=== PATIENT | female | born 1980 | race Caucasian/White ===

== ENCOUNTER 2016-12-17 23:57 | Emergency (ER) | payer MEDICAID ==
--- NOTE | 2016-12-18 00:15 | EDPHY ---
H & P Stated Complaint: Pressure behind eyes for several hours-sees [facility] for anemia. HPI/ROS: HPI CHIEF COMPLAINT: Pressure behind both eyes. Headache. HISTORY OF PRESENT ILLNESS: This patient very pleasant 36-year-old female she does have significant past medical history for chronic fatigue syndrome, migraine headaches and anemia currently being treated for anemia at this time. She presents to the emergency room with pressure behind both of her eyes. She describes this as similar previously before. She states she has had 2-3 other episodes of this before. She was ruled out for glaucoma. Also had a negative CT scan back in January of 2016. She states earlier today around 2 o'clock she developed pressure behind both of her eyes. No visual disturbance. No double vision. No thunderclap headache. No neck pain, no fever, no neck stiffness, no vomiting. No chest pain or shortness of breath. She describes the headache as pressure behind both of her eyes. Without visual disturbance. Past Medical History: Migraine headaches, anemia, chronic fatigue syndrome Past Surgical History: No recent surgical history Social History: Denies daily use of drugs alcohol tobacco products for Family History: Noncontributory ROS REVIEW OF SYSTEMS: A comprehensive 10 point review of systems is otherwise negative aside from elements mentioned in the history of present illness. Exam Constitutional appears well nontoxic, triage nursing summary reviewed, vital signs reviewed, awake/alert. Eyes normal conjunctivae and sclera, EOMI, PERRLA. Globes are soft. Will check pressures. HENT normal inspection, atraumatic, moist mucus membranes, no epistaxis, neck supple/ no meningismus, no raccoon eyes. Respiratory clear to auscultation bilaterally, normal breath sounds, no respiratory distress, no wheezing. Cardiovascular rate normal, regular rhythm, no murmur, no edema, distal pulses normal. Gastrointestinal soft, non-tender, no rebound, no guarding, normal bowel sounds, no distension, no pulsatile mass. Genitourinary no CVA tenderness. Musculoskeletal no midline vertebral tenderness, full range of motion, no calf swelling, no tenderness of extremities, no meningismus, good pulses, neurovascularly intact. Skin pink, warm, & dry, no rash, skin atraumatic. Neurologic awake, alert and oriented x 3, AAOx3, moves all 4 extremities equally, motor intact, sensory intact, CN II-XII intact, normal cerebellar, normal vision, normal speech. Psychiatric normal mood/affect. Heme/Lymph/Immune no lymphadenopathy. Differential Diagnosis: Includes but is not limited to in a particular order, tension headache, cluster headache, migraine headache, Medical Decision Making: Plan for this patient IV establishment, IV fluid bolus , migraine cocktail. I do not feel that we need to reimage her head as she has a normal neurological exam and had a negative CT scan in 2016. Will check pressures in both eyes. Re-evaluation: 1237AM: Pressures were taken with Oscar-Pen. Right eye shows pressure 8,10, 8 left eye shows pressure 11,10,9 eye exam visualization of the posterior eye without dilatation I do not appreciate anything significant. No evidence of vitreous hemorrhage. Normal disc without dilatation. CT scan of the head without IV contrast. The results of the study are negative for acute intracranial abnormality. The study was read by Dr. Rojas. I viewed the images myself on the PACS system. 0200AM: I did re-evaluate this patient at this time she is resting comfortably. She did receive a migraine cocktail. Her CT scan of her head was unremarkable. Again her eye exam is unremarkable with no increasing pressures in soft globes. Believe the pressure behind her eyes is consistent with a migraine headache. It was relieved by migraine cocktail here in the emergency room. Neurological exam is unremarkable. She feels comfortable going home. I have given her Neurology referral. She does understand return emergency room if develops worsening headache, fever, vomiting. Visual disturbance. Source: Patient - Personal History LMP (Females 10-55): 1-7 Days Ago Current Tetanus/Diphtheria Vaccine: Unsure Current Tetanus Diphtheria and Acellular Pertussis (TDAP): Unsure - Medical/Surgical History Hx Asthma: No Hx Chronic Respiratory Disease: No Hx Diabetes: No Hx Cardiac Disease: No Hx Renal Disease: No Hx Cirrhosis: No Hx Alcoholism: No Hx HIV/AIDS: No Hx Splenectomy or Spleen Trauma: No Other PMH: chronic fatigue, anemia. - Social History Smoking Status: Never smoked Constitutional: Initial Vital Signs Temperature (C) 36.6 C 12/17/16 23:59 Heart Rate 68 12/17/16 23:59 Blood Pressure 113/79 12/17/16 23:59 O2 Sat (%) 99 12/17/16 23:59 O2 Delivery Mode Room Air Allergies/Adverse Reactions: amoxicillin Allergy (Intermediate, Verified 12/18/16 00:03) Rash tetracycline Allergy (Intermediate, Verified 12/18/16 00:03) Other-Enter Comments Home Medications: Medication Instructions Recorded LORazepam [Ativan] 1 mg PO Q8 PRN #6 tablet 02/04/16 Ondansetron Odt [Zofran Odt 4 mg 8 mg PO TID PRN #10 tab 02/04/16 (*)] oxyCODONE HCL/ACETAMINOPHEN 2 each PO QID #20 tablet 02/04/16 [Percocet 5-325 mg Tablet] predniSONE [Prednisone] 30 mg PO BID #30 tablet 02/04/16 Medical Decision Making - Data Points Medications Given: Discontinued Medications Dexamethasone (Decadron Injection) 10 mg IVP EDNOW ONE Stop: 12/18/16 00:24 Last Admin: 12/18/16 00:42 Dose: 10 mg Diphenhydramine HCl (Benadryl Injection) 50 mg IVP EDNOW ONE Stop: 12/18/16 00:24 Last Admin: 12/18/16 00:40 Dose: 50 mg Sodium Chloride (Ns) 1,000 mls @ 0 mls/hr IV ONCE ONE; Wide Open PRN Reason: Protocol Stop: 12/18/16 00:24 Last Admin: 12/18/16 00:38 Dose: 1,000 mls Ketorolac Tromethamine (Toradol) 30 mg IVP EDNOW ONE Stop: 12/18/16 00:24 Last Admin: 12/18/16 00:40 Dose: 30 mg Metoclopramide HCl (Reglan Injection) 10 mg IVP EDNOW ONE Stop: 12/18/16 00:24 Last Admin: 12/18/16 00:42 Dose: 10 mg Proparacaine HCl (Alcaine 0.5%) 1 drops OP EDNOW ONE Stop: 12/18/16 00:23 Last Admin: 12/18/16 00:44 Dose: Not Given Departure - Departure Disposition: Home, Routine, Self-Care Clinical Impression: Migraine headache Qualifiers: Migraine type: other Status migrainosus presence: without status migrainosus Intractability: not intractable Qualified Code(s): G43.809 - Other migraine, not intractable, without status migrainosus Condition: Good Instructions: Migraine Headache (ED) Referrals: China Moya PA [Primary Care Provider] - As per Instructions Don Burroughs DO [Medical Doctor] - As per Instructions
[2016-12-18] MEDS ORDERED: PROPARACAINE 0.5% 15 ML OPHT DROP OP ONE (00:22)
[2016-12-18] MEDS ORDERED: NS 1,000 ML IV ONE (00:23)
[2016-12-18] MEDS ORDERED: METOCLOPRAMIDE 10 MG/2 ML VIAL IVP ONE (00:23)
[2016-12-18] MEDS ORDERED: DEXAMETHASONE 10 MG/ML VIAL IVP ONE (00:23)
[2016-12-18] MEDS ORDERED: KETOROLAC 30 MG/1 ML SDV IVP ONE (00:23)
[2016-12-18 01:05] VITALS: TEMP 98.2
[2016-12-18 02:12] VITALS: BP 110/75; PULSE 62; RESP 18; O2SAT 100
== END 2016-12-18 02:12 | disposition home or self-care (01) ==
DX: G43.809 Other migraine, not intractable, without status migrainosus (principal); E86.9 Volume depletion, unspecified
CPT/HCPCS: 96374; J1100; J1200; J1885; J2765

== ENCOUNTER 2017-01-01 21:38 | Emergency (ER) | payer MEDICAID ==
--- NOTE | 2017-01-01 21:41 | EDPHY ---
H & P HPI/ROS: HPI CHIEF COMPLAINT: Presyncope, lightheadedness HISTORY OF PRESENT ILLNESS: This patient very pleasant 36-year-old female she does have significant past medical history for chronic fatigue syndrome, B12 deficiency, and anemia she presents emergency room by EMS feeling very lightheaded and felt as if she is going to pass out. Symptoms started suddenly while seated. She did not have a syncopal episode. She denies any chest pain or shortness of breath. She does report she felt that she had numbness and tingling all 4 of her extremities, hands arms legs. She is globally feels weak. Otherwise no other symptoms. Denies nausea, vomiting, diarrhea. Denies fever. Denies chest pain. Past Medical History: Chronic fatigue syndrome, anemia, B12 deficiency Past Surgical History: No recent surgery Social History: Denies daily use drugs alcohol tobacco products Family History: Noncontributory ROS REVIEW OF SYSTEMS: A comprehensive 10 point review of systems is otherwise negative aside from elements mentioned in the history of present illness. Exam Constitutional appears well nontoxic triage nursing summary reviewed, vital signs reviewed, awake/alert. Eyes normal conjunctivae and sclera, EOMI, PERRLA. HENT normal inspection, atraumatic, moist mucus membranes, no epistaxis, neck supple/ no meningismus, no raccoon eyes. Respiratory clear to auscultation bilaterally, normal breath sounds, no respiratory distress, no wheezing. Cardiovascular rate normal, regular rhythm, no murmur, no edema, distal pulses normal. Gastrointestinal soft, non-tender, no rebound, no guarding, normal bowel sounds, no distension, no pulsatile mass. Genitourinary no CVA tenderness. Musculoskeletal no midline vertebral tenderness, full range of motion, no calf swelling, no tenderness of extremities, no meningismus, good pulses, neurovascularly intact. Skin pink, warm, & dry, no rash, skin atraumatic. Neurologic awake, alert and oriented x 3, AAOx3, moves all 4 extremities equally, motor intact, sensory intact, CN II-XII intact, normal cerebellar, normal vision, normal speech. Psychiatric normal mood/affect. Heme/Lymph/Immune no lymphadenopathy. Differential Diagnosis: Includes but is not limited to in a particular order cardiac arrhythmia, electrolyte disturbance, thyroid dysfunction, urinary tract infection, , PE Medical Decision Making: Left this patient IV establishment full bait maker, IV fluid bolus, check electrolytes, check troponin, check EKG. Check urinalysis test. Re-evaluation: EKG interpretation by me on record in [employer] system. Impression time of EKG 2155, this is sinus rhythm rate of 71, no acute ischemic changes. No signs of cardiac arrhythmia. Unremarkable EKG. Chest x-ray reviewed. Negative for acute cardiopulmonary disease. EKG nonischemic and unremarkable. Blood work is reassuring. Normal D-dimer normal troponin. Normal electrolytes. 2329: Re-evaluation this time patient feeling better. Ambulatory to the bathroom any difficulty. No chest pain no shortness of breath no dizziness no lightheadedness at this time. Patient's workup in the emergency room consisted of blood work, x-ray, EKG IV fluid bolus and cardiac monitoring. It has been all unremarkable. I went over this with her and parents at bedside. I do recommend she follows up with Cardiology on outpatient basis for lightheadedness. She return emergency room if she develops syncope, chest pain or any other questions or concerns she understands this and is comfortable this plan. Source: Patient, EMS - Medical/Surgical History Hx Asthma: No Hx Chronic Respiratory Disease: No Hx Diabetes: No Hx Cardiac Disease: No Hx Renal Disease: No Hx Cirrhosis: No Hx Alcoholism: No Hx HIV/AIDS: No Hx Splenectomy or Spleen Trauma: No Other PMH: chronic fatigue, anemia. - Social History Smoking Status: Never smoked Constitutional: Initial Vital Signs Temperature (C) 36.8 C 01/01/17 21:49 Heart Rate 83 01/01/17 21:49 Respiratory Rate 16 01/01/17 21:49 Blood Pressure 139/86 H 01/01/17 21:49 O2 Sat (%) 100 01/01/17 21:49 O2 Delivery Mode Room Air O2 (L/minute) 2 Allergies/Adverse Reactions: amoxicillin Allergy (Intermediate, Verified 01/01/17 21:47) Rash tetracycline Allergy (Intermediate, Verified 01/01/17 21:47) Other-Enter Comments avocado Allergy (Verified 01/01/17 21:47) Milk Containing Products [dairy] Allergy (Verified 01/01/17 21:47) animals Allergy (Uncoded 01/01/17 21:47) Home Medications: Medication Instructions Recorded B12/Levomefolate Calcium/B-6 01/01/17 Medical Decision Making - Diagnostics Imaging Results: Imaging Impressions Chest X-Ray 01/01/17 21:45 IMPRESSION: Normal chest x-ray. - Data Points Laboratory Results: Laboratory Results 01/01/17 21:45 01/01/17 21:45 01/01/17 01/01/17 01/01/17 23:00 21:45 21:45 WBC RBC Hgb Hct MCV MCH MCHC RDW Plt Count MPV Neut % (Auto) Lymph % (Auto) [place] % (Auto) Eos % (Auto) Baso % (Auto) Nucleat RBC Rel Count Absolute Neuts (auto) Absolute Lymphs (auto) Absolute Monos (auto) Absolute Eos (auto) Absolute Basos (auto) Absolute Nucleated RBC Immature Gran % Immature Gran # PT INR APTT D-Dimer Sodium 137 mEq/L mEq/L (134-144) Potassium 3.8 mEq/L mEq/L (3.5-5.2) Chloride 103 mEq/L mEq/L (97-110) Carbon Dioxide 23 mEq/l mEq/l (22-31) Anion Gap 11 mEq/L mEq/L (8-16) BUN 5 mg/dL L mg/dL (7-23) Creatinine 0.8 mg/dL mg/dL (0.6-1.0) Estimated GFR > 60 Glucose 79 mg/dL mg/dL (70-100) Calcium 9.7 mg/dL mg/dL (8.5-10.4) Magnesium 2.1 mg/dL mg/dL (1.6-2.3) Total Bilirubin 0.6 mg/dL mg/dL (0.1-1.4) Conjugated Bilirubin 0.3 mg/dL mg/dL (0.0-0.5) Unconjugated Bilirubin 0.3 mg/dL mg/dL (0.0-1.1) AST 21 IU/L IU/L (14-46) ALT 27 IU/L IU/L (9-52) Alkaline Phosphatase 41 IU/L IU/L (38-126) Creatine Kinase 54 IU/L IU/L (0-156) CK-MB (CK-2) Fraction 0.27 ng/mL ng/mL (0.00-3.19) Troponin I < 0.012 ng/mL ng/mL (0.000-0.034) NT-Pro-B Natriuret Pep 73 pg/mL pg/mL (0-125) Total Protein 7.3 g/dL g/dL (6.3-8.2) Albumin 4.2 g/dL g/dL (3.5-5.0) Lipase 128 IU/L IU/L (23-300) TSH 1.960 uIU/mL uIU/mL (0.465-4.680) Beta HCG, Qual NEGATIVE Urine Color Pending Urine Appearance Pending Urine pH Pending Ur Specific [place] Pending Urine Protein Pending Urine Ketones Pending Urine Blood Pending Urine Nitrate Pending Urine Bilirubin Pending Urine Urobilinogen Pending Ur Leukocyte Esterase Pending Urine RBC Pending Urine WBC Pending Ur Epithelial Cells Pending Urine Glucose Pending 01/01/17 01/01/17 21:45 21:45 WBC 7.08 10^3/uL 10^3/uL (3.80-9.50) RBC 4.37 10^6/uL 10^6/uL (4.18-5.33) Hgb 12.9 g/dL g/dL (12.6-16.3) Hct 38.3 % % (38.0-47.0) MCV 87.6 fL fL (81.5-99.8) MCH 29.5 pg pg (27.9-34.1) MCHC 33.7 g/dL g/dL (32.4-36.7) RDW 13.9 % % (11.5-15.2) Plt Count 271 10^3/uL 10^3/uL (150-400) MPV 11.9 fL H fL (8.7-11.7) Neut % (Auto) 64.1 % % (39.3-74.2) Lymph % (Auto) 28.4 % % (15.0-45.0) [place] % (Auto) 5.9 % % (4.5-13.0) Eos % (Auto) 0.3 % L % (0.6-7.6) Baso % (Auto) 1.0 % % (0.3-1.7) Nucleat RBC Rel Count 0.0 % % (0.0-0.2) Absolute Neuts (auto) 4.54 10^3/uL 10^3/uL (1.70-6.50) Absolute Lymphs (auto) 2.01 10^3/uL 10^3/uL (1.00-3.00) Absolute Monos (auto) 0.42 10^3/uL 10^3/uL (0.30-0.80) Absolute Eos (auto) 0.02 10^3/uL L 10^3/uL (0.03-0.40) Absolute Basos (auto) 0.07 10^3/uL 10^3/uL (0.02-0.10) Absolute Nucleated RBC 0.00 10^3/uL 10^3/uL (0-0.01) Immature Gran % 0.3 % % (0.0-1.1) Immature Gran # 0.02 10^3/uL 10^3/uL (0.00-0.10) PT 13.5 SEC SEC (12.0-15.0) INR 1.04 (0.83-1.16) APTT 33.9 SEC SEC (23.0-38.0) D-Dimer < 0.27 ug/mLFEU ug/mLFEU (0.00-0.50) Sodium Potassium Chloride Carbon Dioxide Anion Gap BUN Creatinine Estimated GFR Glucose Calcium Magnesium Total Bilirubin Conjugated Bilirubin Unconjugated Bilirubin AST ALT Alkaline Phosphatase Creatine Kinase CK-MB (CK-2) Fraction Troponin I NT-Pro-B Natriuret Pep Total Protein Albumin Lipase TSH Beta HCG, Qual Urine Color Urine Appearance Urine pH Ur Specific [place] Urine Protein Urine Ketones Urine Blood Urine Nitrate Urine Bilirubin Urine Urobilinogen Ur Leukocyte Esterase Urine RBC Urine WBC Ur Epithelial Cells Urine Glucose Medications Given: Discontinued Medications Sodium Chloride (Ns) 1,000 mls @ 0 mls/hr IV EDNOW ONE; Wide Open PRN Reason: Protocol Stop: 01/01/17 21:46 Last Admin: 01/01/17 21:53 Dose: 1,000 mls Departure - Departure Disposition: Home, Routine, Self-Care Clinical Impression: Lightheaded Condition: Good Instructions: Near Syncope (ED), Lightheadedness (ED) Additional Instructions: 1.Drink lots of fluids stay well-hydrated. 2. Return emergency room if develops worsening symptoms questions or concerns. Referrals: Patient,NotPresent [Unknown] - As per Instructions Mikael Titus MD [Medical Doctor] - As per Instructions
[2017-01-01] MEDS ORDERED: NS 1,000 ML IV ONE (21:45)
[2017-01-01 21:52] VITALS: O2SAT 100
[2017-01-01 21:55] LABS: % IMMATURE GRANULYOCYTES 0.3 % (0.0-1.1); ABSOLUTE IMMATURE GRANULOCYTES 0.02 10^3/uL (0.00-0.10); ADD DIFF? NO; ADD MORPH? NO; ADD SCAN? NO; ATYPICAL LYMPHOCYTE FLAG 0 (0-99); FRAGMENT RBC FLAG 0 (0-99); HEMATOCRIT 38.3 % (38.0-47.0); HEMOGLOBIN 12.9 g/dL (12.6-16.3); LEFT SHIFT FLG 0 (0-99); LIPEMIA HEMOLYSIS FLAG 80 (0-99); MEAN CELL HEMOGLOBIN 29.5 pg (27.9-34.1); MEAN CELL HEMOGLOBIN CONCENTR. 33.7 g/dL (32.4-36.7); MEAN CELL VOLUME 87.6 fL (81.5-99.8); MEAN PLATELET VOLUME 11.9 fL (8.7-11.7); PLATELET CLUMPS FLAG 0 (0-99); PLATELET COUNT 271 10^3/uL (150-400); RED BLOOD CELL COUNT 4.37 10^6/uL (4.18-5.33); RED CELL DISTRIBUTION WIDTH 13.9 % (11.5-15.2)
--- NOTE | 2017-01-01 21:58 | CPEKG ---
Heart Rate: 71 RR Interval: 845 P-R Interval: 120 QRSD Interval: 78 QT Interval: 388 QTC Interval: 422 P [place]: 23 QRS [place]: 55 T Wave [place]: 61 EKG Severity - NORMAL ECG - EKG Impression: SINUS RHYTHM Electronically Signed By: Domo Nicholas 04-Jan-2017 17:06:58
[2017-01-01 22:02] LABS: INR 1.04 (0.83-1.16); PROTIME(PATIENT) 13.5 SEC (12.0-15.0)
[2017-01-01 22:03] LABS: APTT 33.9 SEC (23.0-38.0)
[2017-01-01 22:04] LABS: ALANINE AMINOTRANSFERASE 27 IU/L (9-52); ALBUMIN 4.2 g/dL (3.5-5.0); ALKALINE PHOSPHATASE 41 IU/L (38-126); ANION GAP 11 mEq/L (8-16); ASPARTATE AMINOTRANSFERASE 21 IU/L (14-46); BILIRUBIN,TOTAL 0.6 mg/dL (0.1-1.4); BILIRUBIN-CONJUGATED 0.3 mg/dL (0.0-0.5); BILIRUBIN-UNCONJUGATED 0.3 mg/dL (0.0-1.1); CALCIUM 9.7 mg/dL (8.5-10.4); CARBON DIOXIDE 23 mEq/l (22-31); CHLORIDE 103 mEq/L (97-110); CREATININE 0.8 mg/dL (0.6-1.0); GLOMERULAR FILTRATION RATE > 60; GLUCOSE 79 mg/dL (70-100); MAGNESIUM 2.1 mg/dL (1.6-2.3); POTASSIUM 3.8 mEq/L (3.5-5.2); SODIUM 137 mEq/L (134-144); TOTAL PROTEIN 7.3 g/dL (6.3-8.2)
[2017-01-01 22:17] LABS: CREATINE KINASE-MB FRACTION 0.27 ng/mL (0.00-3.19); TROPONIN I < 0.012 ng/mL (0.000-0.034)
[2017-01-01 23:35] LABS: COLOR PALE YELLOW; LEUKOCYTE ESTERASE,URINE NEGATIVE (NEGATIVE); NITRITE,URINE NEGATIVE (NEGATIVE)
[2017-01-01 23:38] LABS: BACTERIA TRACE /hpf (NONE SEEN); MUCUS TRACE /lpf (NONE-1+)
[2017-01-01 23:59] VITALS: BP 119/82; PULSE 84; RESP 16; TEMP 98.6
== END 2017-01-01 23:59 | disposition home or self-care (01) ==
LOC: EDUNIT#
DX: R42 Dizziness and giddiness (principal); E86.9 Volume depletion, unspecified

== ENCOUNTER 2017-01-05 18:12 | Emergency (ER) | payer MEDICAID ==
[2017-01-05 18:20] VITALS: RESP 16
[2017-01-05] MEDS ORDERED: NS 500 ML IV ONE (18:44)
[2017-01-05] MEDS ORDERED: LORazepam 2 MG/ML INJ IVP ONE (18:45)
--- NOTE | 2017-01-05 18:51 | CPEKG ---
Heart Rate: 76 RR Interval: 789 P-R Interval: 110 QRSD Interval: 82 QT Interval: 380 QTC Interval: 428 P [place]: 0 QRS [place]: 62 T Wave [place]: 50 EKG Severity - NORMAL ECG - EKG Impression: SINUS RHYTHM Electronically Signed By: Karina Mcwilliams 05-Jan-2017 20:26:28
--- NOTE | 2017-01-05 18:52 | EDPHY ---
H & P Time Seen by Provider: 01/05/17 18:30 HPI/ROS: CHIEF COMPLAINT: Left arm pain and tingling HISTORY OF PRESENT ILLNESS: Patient is a 36-year-old female who presents emergency department with left arm pain and tingling. She also is complaining of lightheadedness. Patient has a history of B12 deficiency anemia. She had a B12 shot earlier today. 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 This was approximately 1 hour ago. She initially felt lightheaded. She then developed a discomfort in the left arm. She denies headache. No chest pain. No shortness of breath. She feels as though she may pass out. She had no loss of consciousness. She denies nausea or vomiting. No weakness. REVIEW OF SYSTEMS: My complete review of systems is negative except as mentioned in the HPI. Past Medical/Surgical History: Chronic fatigue syndrome, anemia, B12 deficiency Past surgical history: No surgery recently Social history: The patient denies drugs or alcohol Smoking Status: Never smoked Physical Exam: Vitals noted. 36.7, 126/92, 79, 16, 100% on room air GENERAL: Well-appearing, in no acute distress, alert. HEENT: Eyes normal to inspection, normal pharynx, no signs of dehydration. NECK: No thyromegaly, no lymphadenopathy, supple. RESPIRATORY: Clear to auscultation bilaterally, no rales, rhonchi or wheezing. CVS: Regular rate and rhythm, no rubs, murmurs, or gallops. ABDOMEN: Soft, nontender, nondistended, no organomegaly. BACK: Normal to inspection, no CVA tenderness. SKIN: Normal color, no rash, warm, dry. No pallor. EXTREMITIES: No pedal edema, no calf tenderness, no Homans sign or cords, no joint swelling. NEURO/PSYCH: Alert and oriented x3, slightly anxious appearing, normal affect, normal motor sensory exam. Slight hand tremor. Constitutional: Initial Vital Signs Temperature (C) 36.7 C 01/05/17 18:17 Heart Rate 79 01/05/17 18:17 Respiratory Rate 16 01/05/17 18:17 Blood Pressure 126/92 H 01/05/17 18:17 O2 Sat (%) 100 01/05/17 18:17 O2 Delivery Mode Room Air Allergies/Adverse Reactions: amoxicillin Allergy (Intermediate, Verified 01/05/17 18:17) Rash tetracycline Allergy (Intermediate, Verified 01/05/17 18:17) Other-Enter Comments avocado Allergy (Verified 01/05/17 18:17) Milk Containing Products [dairy] Allergy (Verified 01/05/17 18:17) animals Allergy (Uncoded 01/01/17 21:47) Home Medications: Medication Instructions Recorded B12/Levomefolate Calcium/B-6 01/01/17 Medical Decision Making ED Course/Re-evaluation: In the emergency department I discussed the plan with the patient. I answered all her questions. An IV was placed. Laboratory studies and EKG were ordered. I reviewed the patient's previous record from 01/01/2017. Due the patient's slight tremor she was given Ativan 0.1 mg IV. EKG shows normal sinus rhythm, normal rate, normal axis, normal intervals. There are no ST or T-wave abnormalities. EKG is normal as interpreted by me. I reviewed the patient's laboratory studies. Her CBC and chemistry unremarkable. Troponin was negative. I discussed results with the patient. She is feeling better. She will follow up with Cardiology her primary care physician. She is given warnings prior to leaving. Differential Diagnosis: My differential includes but is not limited to ACS, acute [place], dysrhythmia, electrolyte abnormality, sugar abnormality, dehydration, anemia, UTI, , thyroid dysfunction - Data Points Laboratory Results: Laboratory Results 01/05/17 18:55 01/05/17 18:55 01/05/17 01/05/17 01/05/17 18:55 18:55 18:55 WBC RBC Hgb Hct MCV MCH MCHC RDW Plt Count MPV Neut % (Auto) Lymph % (Auto) [place] % (Auto) Eos % (Auto) Baso % (Auto) Nucleat RBC Rel Count Absolute Neuts (auto) Absolute Lymphs (auto) Absolute Monos (auto) Absolute Eos (auto) Absolute Basos (auto) Absolute Nucleated RBC Immature Gran % Immature Gran # PT 14.1 SEC SEC (12.0-15.0) INR 1.10 (0.83-1.16) APTT 32.2 SEC SEC (23.0-38.0) Sodium 135 mEq/L mEq/L (134-144) Potassium 3.7 mEq/L mEq/L (3.5-5.2) Chloride 103 mEq/L mEq/L (97-110) Carbon Dioxide 19 mEq/l L mEq/l (22-31) Anion Gap 13 mEq/L mEq/L (8-16) BUN 8 mg/dL mg/dL (7-23) Creatinine 0.7 mg/dL mg/dL (0.6-1.0) Estimated GFR > 60 Glucose 86 mg/dL mg/dL (70-100) Calcium 9.4 mg/dL mg/dL (8.5-10.4) Total Bilirubin 1.1 mg/dL mg/dL (0.1-1.4) Conjugated Bilirubin 0.3 mg/dL mg/dL (0.0-0.5) Unconjugated Bilirubin 0.8 mg/dL mg/dL (0.0-1.1) AST 16 IU/L IU/L (14-46) ALT 24 IU/L IU/L (9-52) Alkaline Phosphatase 38 IU/L IU/L (38-126) Troponin I < 0.012 ng/mL ng/mL (0.000-0.034) Total Protein 6.8 g/dL g/dL (6.3-8.2) Albumin 4.1 g/dL g/dL (3.5-5.0) Lipase 96 IU/L IU/L (23-300) Beta HCG, Qual NEGATIVE 01/05/17 18:55 WBC 7.51 10^3/uL 10^3/uL (3.80-9.50) RBC 4.60 10^6/uL 10^6/uL (4.18-5.33) Hgb 13.4 g/dL g/dL (12.6-16.3) Hct 40.7 % % (38.0-47.0) MCV 88.5 fL fL (81.5-99.8) MCH 29.1 pg pg (27.9-34.1) MCHC 32.9 g/dL g/dL (32.4-36.7) RDW 14.1 % % (11.5-15.2) Plt Count 280 10^3/uL 10^3/uL (150-400) MPV 11.3 fL fL (8.7-11.7) Neut % (Auto) 69.0 % % (39.3-74.2) Lymph % (Auto) 22.4 % % (15.0-45.0) [place] % (Auto) 6.4 % % (4.5-13.0) Eos % (Auto) 0.7 % % (0.6-7.6) Baso % (Auto) 1.1 % % (0.3-1.7) Nucleat RBC Rel Count 0.0 % % (0.0-0.2) Absolute Neuts (auto) 5.19 10^3/uL 10^3/uL (1.70-6.50) Absolute Lymphs (auto) 1.68 10^3/uL 10^3/uL (1.00-3.00) Absolute Monos (auto) 0.48 10^3/uL 10^3/uL (0.30-0.80) Absolute Eos (auto) 0.05 10^3/uL 10^3/uL (0.03-0.40) Absolute Basos (auto) 0.08 10^3/uL 10^3/uL (0.02-0.10) Absolute Nucleated RBC 0.00 10^3/uL 10^3/uL (0-0.01) Immature Gran % 0.4 % % (0.0-1.1) Immature Gran # 0.03 10^3/uL 10^3/uL (0.00-0.10) PT INR APTT Sodium Potassium Chloride Carbon Dioxide Anion Gap BUN Creatinine Estimated GFR Glucose Calcium Total Bilirubin Conjugated Bilirubin Unconjugated Bilirubin AST ALT Alkaline Phosphatase Troponin I Total Protein Albumin Lipase Beta HCG, Qual Medications Given: Discontinued Medications Sodium Chloride (Ns) 500 mls @ 1,000 mls/hr IV EDNOW ONE PRN Reason: Protocol Stop: 01/05/17 19:13 Last Admin: 01/05/17 19:03 Dose: 500 mls Lorazepam (Ativan Injection) 0.5 mg IVP EDNOW ONE Stop: 01/05/17 18:46 Last Admin: 01/05/17 19:03 Dose: 0.5 mg Departure - Departure Disposition: Home, Routine, Self-Care Clinical Impression: Near syncope Condition: Good Instructions: Allergies (ED) Additional Instructions: Return with worsen symptoms or any other concerns. Referrals: China Moya PA [Primary Care Provider] - 1-2 days without fail [facility] [Provider Group] - 3-4 days, if not improved
[2017-01-05 19:03] LABS: % IMMATURE GRANULYOCYTES 0.4 % (0.0-1.1); ABSOLUTE IMMATURE GRANULOCYTES 0.03 10^3/uL (0.00-0.10); ADD DIFF? NO; ADD MORPH? NO; ADD SCAN? NO; ATYPICAL LYMPHOCYTE FLAG 20 (0-99); FRAGMENT RBC FLAG 0 (0-99); HEMATOCRIT 40.7 % (38.0-47.0); HEMOGLOBIN 13.4 g/dL (12.6-16.3); LEFT SHIFT FLG 0 (0-99); LIPEMIA HEMOLYSIS FLAG 80 (0-99); MEAN CELL HEMOGLOBIN 29.1 pg (27.9-34.1); MEAN CELL HEMOGLOBIN CONCENTR. 32.9 g/dL (32.4-36.7); MEAN CELL VOLUME 88.5 fL (81.5-99.8); MEAN PLATELET VOLUME 11.3 fL (8.7-11.7); PLATELET CLUMPS FLAG 10 (0-99); PLATELET COUNT 280 10^3/uL (150-400); RED CELL DISTRIBUTION WIDTH 14.1 % (11.5-15.2)
[2017-01-05 19:12] LABS: INR 1.1 (0.83-1.16); PROTIME(PATIENT) 14.1 SEC (12.0-15.0)
[2017-01-05 19:13] LABS: APTT 32.2 SEC (23.0-38.0)
[2017-01-05 19:14] LABS: ALANINE AMINOTRANSFERASE 24 IU/L (9-52); ALBUMIN 4.1 g/dL (3.5-5.0); ALKALINE PHOSPHATASE 38 IU/L (38-126); ANION GAP 13 mEq/L (8-16); ASPARTATE AMINOTRANSFERASE 16 IU/L (14-46); BILIRUBIN,TOTAL 1.1 mg/dL (0.1-1.4); BILIRUBIN-CONJUGATED 0.3 mg/dL (0.0-0.5); BILIRUBIN-UNCONJUGATED 0.8 mg/dL (0.0-1.1); CALCIUM 9.4 mg/dL (8.5-10.4); CARBON DIOXIDE 19 mEq/l (22-31); CHLORIDE 103 mEq/L (97-110); CREATININE 0.7 mg/dL (0.6-1.0); GLOMERULAR FILTRATION RATE > 60; GLUCOSE 86 mg/dL (70-100); POTASSIUM 3.7 mEq/L (3.5-5.2); SODIUM 135 mEq/L (134-144); TOTAL PROTEIN 6.8 g/dL (6.3-8.2)
[2017-01-05 19:39] LABS: TROPONIN I < 0.012 ng/mL (0.000-0.034)
[2017-01-05 20:13] VITALS: O2SAT 96
[2017-01-05 20:22] VITALS: BP 136/80; PULSE 66; TEMP 97.9
== END 2017-01-05 20:21 | disposition home or self-care (01) ==
DX: R55 Syncope and collapse (principal); E86.9 Volume depletion, unspecified
CPT/HCPCS: 96374; J2060

== ENCOUNTER 2017-01-09 00:03 | Emergency (ER) | payer MEDICAID ==
[2017-01-09 00:12] VITALS: PULSE 100; RESP 18; TEMP 98.4; O2SAT 100
[2017-01-09] MEDS ORDERED: KETOROLAC 15 MG/1 ML SDV IVP ONE (01:01)
--- NOTE | 2017-01-09 01:04 | EDPHY ---
H & P Stated Complaint: pt c/o pressure in her head, and eyes, seen x2 in last week for similar Time Seen by Provider: 01/09/17 00:49 HPI/ROS: Chief Complaint: Head pressure HPI: 36-year-old woman presenting complaining of pressure in the front half of her head. Patient states that began several days ago but got worse today. She has actually had his multiple visits to the emergency department last week for various complaints include lightheadedness, head pressure, I pressure in the past. She was actually seen by neurologist last week who ordered an MRI. Patient states that the pressure is about an 8/10. She did have some flashing lights a couple days ago is and mild ringing in her ears. No recent traumas. No nausea or vomiting. No new numbness or weakness. No fevers or chills. No neck pain or stiffness. ROS: 10 point Review of Systems is negative except as noted in the HPI. PMH: Chronic fatigue, anemia Social History: No smoking, rare alcohol, no recreational drug use Family History: non-contributory Physical Exam: Gen: Awake, Alert, No Distress HEENT: Nose: no rhinorrhea Eyes: PERRLA, EOMI Mouth: Moist mucosa Neck: Supple, no JVD Chest: nontender, lungs clear to auscultation Heart: S1, S2 normal, no murmur Abd: Soft, non-tender, no guarding Back: no CVA tenderness, no midline tenderness Ext: no edema, non-tender Skin: no rash Neuro: CN II-XII intact, Sensation grossly intact, Strength 5/5 in bilateral upper and lower extremities - Personal History LMP (Females 10-55): 1-7 Days Ago Current Tetanus Diphtheria and Acellular Pertussis (TDAP): Unsure - Medical/Surgical History Hx Asthma: No Hx Chronic Respiratory Disease: No Hx Diabetes: No Hx Cardiac Disease: No Hx Renal Disease: No Hx Cirrhosis: No Hx Alcoholism: No Hx HIV/AIDS: No Hx Splenectomy or Spleen Trauma: No Other PMH: chronic fatigue, anemia. - Social History Smoking Status: Never smoked Constitutional: Initial Vital Signs Temperature (C) 36.9 C 01/09/17 00:09 Heart Rate 100 01/09/17 00:09 Respiratory Rate 18 01/09/17 00:09 Blood Pressure 114/71 01/09/17 00:09 O2 Sat (%) 100 01/09/17 00:09 O2 Delivery Mode Room Air Allergies/Adverse Reactions: amoxicillin Allergy (Intermediate, Verified 01/05/17 18:17) Rash tetracycline Allergy (Intermediate, Verified 01/05/17 18:17) Other-Enter Comments avocado Allergy (Verified 01/05/17 18:17) Milk Containing Products [dairy] Allergy (Verified 01/05/17 18:17) animals Allergy (Uncoded 01/01/17 21:47) Home Medications: Medication Instructions Recorded B12/Levomefolate Calcium/B-6 01/01/17 Medical Decision Making ED Course/Re-evaluation: Patient is improved. No focal neurologic findings on her examination. She also has an appointment for an MRI. The symptoms suggestive of meningitis or an intracranial bleed. She has presented multiple times this week for similar symptoms with no significant findings. I think it is best to discharge her to have a follow-up this week with her neurologist and her primary care physician. She will return for worsening. - Data Points Laboratory Results: Laboratory Results 01/09/17 00:50 01/09/17 00:50 01/09/17 01/09/17 00:50 00:50 WBC 4.69 10^3/uL 10^3/uL (3.80-9.50) RBC 4.40 10^6/uL 10^6/uL (4.18-5.33) Hgb 12.9 g/dL g/dL (12.6-16.3) Hct 39.4 % % (38.0-47.0) MCV 89.5 fL fL (81.5-99.8) MCH 29.3 pg pg (27.9-34.1) MCHC 32.7 g/dL g/dL (32.4-36.7) RDW 13.8 % % (11.5-15.2) Plt Count 274 10^3/uL 10^3/uL (150-400) MPV 11.1 fL fL (8.7-11.7) Neut % (Auto) 47.1 % % (39.3-74.2) Lymph % (Auto) 42.0 % % (15.0-45.0) [place] % (Auto) 7.5 % % (4.5-13.0) Eos % (Auto) 1.5 % % (0.6-7.6) Baso % (Auto) 1.7 % % (0.3-1.7) Nucleat RBC Rel Count 0.0 % % (0.0-0.2) Absolute Neuts (auto) 2.21 10^3/uL 10^3/uL (1.70-6.50) Absolute Lymphs (auto) 1.97 10^3/uL 10^3/uL (1.00-3.00) Absolute Monos (auto) 0.35 10^3/uL 10^3/uL (0.30-0.80) Absolute Eos (auto) 0.07 10^3/uL 10^3/uL (0.03-0.40) Absolute Basos (auto) 0.08 10^3/uL 10^3/uL (0.02-0.10) Absolute Nucleated RBC 0.00 10^3/uL 10^3/uL (0-0.01) Immature Gran % 0.2 % % (0.0-1.1) Immature Gran # 0.01 10^3/uL 10^3/uL (0.00-0.10) Sodium 140 mEq/L mEq/L (134-144) Potassium 3.7 mEq/L mEq/L (3.5-5.2) Chloride 104 mEq/L mEq/L (97-110) Carbon Dioxide 26 mEq/l mEq/l (22-31) Anion Gap 10 mEq/L mEq/L (8-16) BUN 4 mg/dL L mg/dL (7-23) Creatinine 0.7 mg/dL mg/dL (0.6-1.0) Estimated GFR > 60 Glucose 82 mg/dL mg/dL (70-100) Calcium 9.3 mg/dL mg/dL (8.5-10.4) Medications Given: Discontinued Medications Sodium Chloride (Ns) 1,000 mls @ 0 mls/hr IV ONCE ONE PRN Reason: Wide Open Stop: 01/09/17 01:09 Last Admin: 01/09/17 00:50 Dose: 1,000 mls Ketorolac Tromethamine (Toradol) 15 mg IVP EDNOW ONE Stop: 01/09/17 01:02 Last Admin: 01/09/17 01:11 Dose: 15 mg Departure - Departure Disposition: Home, Routine, Self-Care Clinical Impression: Headache Condition: Good Instructions: General Headache (ED) Additional Instructions: Follow up with primary care physician as scheduled on Monday. Follow up with your neurologist and get the MRI of the brain performed as ordered. Return to the emergency department for worsening headache, numbness, weakness, fevers, chills, or any other concerns. Referrals: China Moya PA [Primary Care Provider] - As per Instructions
[2017-01-09 01:05] LABS: % IMMATURE GRANULYOCYTES 0.2 % (0.0-1.1); ABSOLUTE IMMATURE GRANULOCYTES 0.01 10^3/uL (0.00-0.10); ADD DIFF? NO; ADD MORPH? NO; ADD SCAN? NO; ATYPICAL LYMPHOCYTE FLAG 0 (0-99); FRAGMENT RBC FLAG 0 (0-99); HEMATOCRIT 39.4 % (38.0-47.0); HEMOGLOBIN 12.9 g/dL (12.6-16.3); LEFT SHIFT FLG 0 (0-99); LIPEMIA HEMOLYSIS FLAG 80 (0-99); MEAN CELL HEMOGLOBIN 29.3 pg (27.9-34.1); MEAN CELL HEMOGLOBIN CONCENTR. 32.7 g/dL (32.4-36.7); MEAN CELL VOLUME 89.5 fL (81.5-99.8); MEAN PLATELET VOLUME 11.1 fL (8.7-11.7); PLATELET CLUMPS FLAG 0 (0-99); PLATELET COUNT 274 10^3/uL (150-400); RED CELL DISTRIBUTION WIDTH 13.8 % (11.5-15.2)
[2017-01-09] MEDS ORDERED: NS 1,000 ML IV ONE (01:08)
[2017-01-09 01:22] LABS: ANION GAP 10 mEq/L (8-16); CALCIUM 9.3 mg/dL (8.5-10.4); CARBON DIOXIDE 26 mEq/l (22-31); CHLORIDE 104 mEq/L (97-110); CREATININE 0.7 mg/dL (0.6-1.0); GLOMERULAR FILTRATION RATE > 60; GLUCOSE 82 mg/dL (70-100); POTASSIUM 3.7 mEq/L (3.5-5.2); SODIUM 140 mEq/L (134-144)
[2017-01-09 02:47] VITALS: BP 110/80
== END 2017-01-09 02:46 | disposition home or self-care (01) ==
PROC: 3E0337Z Introduction of Electrolytic and Water Balance Substance into Peripheral Vein, Percutaneous Approach (ICD-10-PCS; principal; 2017-01-09)
DX: R51 Headache (principal)
CPT/HCPCS: 96374; J1885

== ENCOUNTER 2017-01-10 17:29 | Inpatient (IN) | payer MEDICAID ==
--- NOTE | 2017-01-10 17:45 | EDPHY ---
General Narrative: CHIEF COMPLAINT: Multiple complaints HISTORY OF PRESENT ILLNESS: Patient complains of ongoing "head" complaints. These include occasional lightheaded and dizziness, facial tingling and numbness, left arm tingling and numbness, weakness of the left arm, tremor, difficulty with words and thought process. Symptoms wax and wane. They are [id number]. They are unpredictable. The never fully resolved. No chest pain but she does have near syncope with. She has been evaluated several times for this and discuss this with a neurologist yesterday and has an MRI ordered tomorrow night of the brain. She has no fever or chills. She has no neck pain or stiffness. No trauma or injury. She has no formal diagnosis further complaints despite several visits. No other associated complaints or modifying factors REVIEW OF SYSTEMS: Ten systems reviewed and are negative unless otherwise noted in the HPI PAST MEDICAL HISTORY: Extensive. Reviewed PAST SURGICAL HISTORY: Reviewed SOCIAL HISTORY: Nonsmoker. Works [employer] but [facility] in [facility] FAMILY HISTORY: Noncontributory EXAMINATION General Appearance: Alert, no distress Head: normocephalic, atraumatic Eyes: Pupils equal and round, no conjunctival pallor or injection. No nystagmus. No dysconjugate gaze. EOMs intact ENT, Mouth: Mucous membranes moist. Airway widely patent. Neck: Normal inspection, supple, non-tender Respiratory: Lungs are clear to auscultation Cardiovascular: Regular rate and rhythm. No murmur Gastrointestinal: Abdomen is soft and nontender Back: non-tender, no bony abnormalities Neurological: GCS 15. A&O, nonfocal, normal gait. Strength is symmetric in all 4 limbs. No pronator drift. No dysmetria. NIH stroke scale is 0 Skin: Warm and dry, no rash. No petechiae or purpura Extremities: Nontender, no pedal edema Psychiatric: Mood and affect normal DIFFERENTIAL DIAGNOSES: Including but not limited to TA, CVA, seizure, electrolyte disturbance, somatic disorder MDM: 5:40 p.m. Multiple complaints with primary concern of facial tingling, left upper extremity tingling weakness, difficulty with her words. Patient has been seen 3 times for the same complaints over the past 9 days. She has an appointment for an MRI tomorrow. She has no chest pain syncope. Vital signs are stable. EKG is been ordered. Laboratory studies pending. She is in no acute distress. This is not a stroke activation she has no evidence of stroke by examination or history at this time. 6:10 p.m. Discussed the case with Dr. Dougherty. He is in agreement with brain MRI and also suggest cervical spine MRI. This has been ordered and she is currently in MRI. 9:00 p.m. Notified by radiologist Dr. Campbell. MRIs of the brain and cervical spine without contrast have no acute findings. 9:10 p.m. I have informed the patient of the negative findings. I informed her of the negative laboratory studies. The patient is adamant that there is something abnormal and as expressed her concern for TIA. She is requesting admission to the hospital and states that she is too debilitated to go home. We discussed with hospitalist. 9:15 p.m. Case discussed with hospitalist . We discussed multiple possibilities for the next level of care. Dr. Montejo has agreed to admit the patient to the hospital to the service of Dr. Canales. She is admitted in stable condition. Patient is not a tPA candidate as she has no evidence of stroke. She has an NIH Stroke Scale of 0. - Diagnostics Imaging Results: Imaging Impressions Chest X-Ray 01/10/17 17:39 Impression: 1. No acute pulmonary disease. 2. No definite pneumonia. Brain MRI 01/10/17 17:44 Impression: Normal. Report telephoned at 2050 hours. Cervical Spine MRI 01/10/17 18:06 Impression: Normal. Report telephoned to Guillermo Hawk at 2054 hours. - History Smoking Status: Never smoked - Objective Vital Signs: Initial Vital Signs Temperature (C) 97.9 F 01/10/17 17:42 Heart Rate 72 01/10/17 17:42 Respiratory Rate 16 01/10/17 17:42 Blood Pressure 141/97 H 01/10/17 17:42 O2 Sat (%) 100 01/10/17 17:42 O2 Delivery Mode Room Air Allergies/Adverse Reactions: amoxicillin Allergy (Intermediate, Verified 01/05/17 18:17) Rash tetracycline Allergy (Intermediate, Verified 01/05/17 18:17) Other-Enter Comments avocado Allergy (Verified 01/05/17 18:17) Milk Containing Products [dairy] Allergy (Verified 01/05/17 18:17) animals Allergy (Uncoded 01/01/17 21:47) Home Medications: Medication Instructions Recorded Cyanocobalamin [Vitamin B12 1,000 mcg IM Q7D 01/10/17 1000MCG/ML (*)] Herbals/Supplements -Info Only 1 ea PO DAILY 01/10/17 Ibuprofen [Motrin (*)] 400 mg PO Q4-6PRN PRN 01/10/17 Laboratory Results: Laboratory Results 01/10/17 17:45 01/10/17 17:45 01/10/17 01/10/17 01/10/17 17:45 17:45 17:45 WBC RBC Hgb Hct MCV MCH MCHC RDW Plt Count MPV Neut % (Auto) Lymph % (Auto) [place] % (Auto) Eos % (Auto) Baso % (Auto) Nucleat RBC Rel Count Absolute Neuts (auto) Absolute Lymphs (auto) Absolute Monos (auto) Absolute Eos (auto) Absolute Basos (auto) Absolute Nucleated RBC Immature Gran % Immature Gran # PT 13.8 SEC SEC (12.0-15.0) INR 1.07 (0.83-1.16) APTT 33.3 SEC SEC (23.0-38.0) Sodium 139 mEq/L mEq/L (134-144) Potassium 3.6 mEq/L mEq/L (3.5-5.2) Chloride 105 mEq/L mEq/L (97-110) Carbon Dioxide 23 mEq/l mEq/l (22-31) Anion Gap 11 mEq/L mEq/L (8-16) BUN 6 mg/dL L mg/dL (7-23) Creatinine 0.8 mg/dL mg/dL (0.6-1.0) Estimated GFR > 60 Glucose 84 mg/dL mg/dL (70-100) Calcium 9.5 mg/dL mg/dL (8.5-10.4) Troponin I < 0.012 ng/mL ng/mL (0.000-0.034) Beta HCG, Qual NEGATIVE 01/10/17 17:45 WBC 3.52 10^3/uL L 10^3/uL (3.80-9.50) RBC 4.39 10^6/uL 10^6/uL (4.18-5.33) Hgb 13.1 g/dL g/dL (12.6-16.3) Hct 38.8 % % (38.0-47.0) MCV 88.4 fL fL (81.5-99.8) MCH 29.8 pg pg (27.9-34.1) MCHC 33.8 g/dL g/dL (32.4-36.7) RDW 13.8 % % (11.5-15.2) Plt Count 232 10^3/uL 10^3/uL (150-400) MPV 11.7 fL fL (8.7-11.7) Neut % (Auto) 42.7 % % (39.3-74.2) Lymph % (Auto) 44.3 % % (15.0-45.0) [place] % (Auto) 9.9 % % (4.5-13.0) Eos % (Auto) 1.1 % % (0.6-7.6) Baso % (Auto) 2.0 % H % (0.3-1.7) Nucleat RBC Rel Count 0.0 % % (0.0-0.2) Absolute Neuts (auto) 1.50 10^3/uL L 10^3/uL (1.70-6.50) Absolute Lymphs (auto) 1.56 10^3/uL 10^3/uL (1.00-3.00) Absolute Monos (auto) 0.35 10^3/uL 10^3/uL (0.30-0.80) Absolute Eos (auto) 0.04 10^3/uL 10^3/uL (0.03-0.40) Absolute Basos (auto) 0.07 10^3/uL 10^3/uL (0.02-0.10) Absolute Nucleated RBC 0.00 10^3/uL 10^3/uL (0-0.01) Immature Gran % 0.0 % % (0.0-1.1) Immature Gran # 0.00 10^3/uL 10^3/uL (0.00-0.10) PT INR APTT Sodium Potassium Chloride Carbon Dioxide Anion Gap BUN Creatinine Estimated GFR Glucose Calcium Troponin I Beta HCG, Qual Departure - Departure Disposition: [facility] Inpatient Acute Clinical Impression: Paresthesia Condition: Good
--- NOTE | 2017-01-10 17:53 | CPEKG ---
Heart Rate: 69 RR Interval: 870 P-R Interval: 112 QRSD Interval: 80 QT Interval: 380 QTC Interval: 407 P Ferris: 48 QRS Ferris: 64 T Wave Ferris: 62 EKG Severity - NORMAL ECG - EKG Impression: SINUS RHYTHM Electronically Signed By: Jose Dougherty 10-Jan-2017 23:03:41
[2017-01-10 17:56] LABS: ADD DIFF? NO; ADD MORPH? NO; ADD SCAN? NO; ATYPICAL LYMPHOCYTE FLAG 10 (0-99); FRAGMENT RBC FLAG 0 (0-99); HEMATOCRIT 38.8 % (38.0-47.0); HEMOGLOBIN 13.1 g/dL (12.6-16.3); LEFT SHIFT FLG 0 (0-99); LIPEMIA HEMOLYSIS FLAG 90 (0-99); MEAN CELL HEMOGLOBIN 29.8 pg (27.9-34.1); MEAN CELL HEMOGLOBIN CONCENTR. 33.8 g/dL (32.4-36.7); MEAN CELL VOLUME 88.4 fL (81.5-99.8); MEAN PLATELET VOLUME 11.7 fL (8.7-11.7); PLATELET CLUMPS FLAG 0 (0-99); PLATELET COUNT 232 10^3/uL (150-400); RED BLOOD CELL COUNT 4.39 10^6/uL (4.18-5.33); RED CELL DISTRIBUTION WIDTH 13.8 % (11.5-15.2)
[2017-01-10] MEDS ORDERED: GADOBUTROL 10 ML VIAL IVP ONE (18:08)
[2017-01-10 18:16] LABS: CALCIUM 9.5 mg/dL (8.5-10.4); CARBON DIOXIDE 23 mEq/l (22-31); CREATININE 0.8 mg/dL (0.6-1.0); GLOMERULAR FILTRATION RATE > 60; GLUCOSE 84 mg/dL (70-100); POTASSIUM 3.6 mEq/L (3.5-5.2); SODIUM 139 mEq/L (134-144)
[2017-01-10 18:18] LABS: INR 1.07 (0.83-1.16); PROTIME(PATIENT) 13.8 SEC (12.0-15.0)
[2017-01-10 18:19] LABS: APTT 33.3 SEC (23.0-38.0)
[2017-01-10 18:27] LABS: TROPONIN I < 0.012 ng/mL (0.000-0.034)
[2017-01-10 18:38] LABS: ANION GAP 11 mEq/L (8-16); CHLORIDE 105 mEq/L (97-110)
[2017-01-10] MEDS ORDERED: ONDANSETRON DISINTEGRATING 4 MG TAB PO PRN (23:36)
[2017-01-10] MEDS ORDERED: ONDANSETRON 4 MG/2 ML VIAL IVP PRN (23:36)
--- NOTE | 2017-01-11 00:24 | PDGENHP ---
History and Physical - Chief Complaint Tingling - History of Present Illness 36 yo F w/ self-reported history of chronic fatigue syndrome comes in with a myriad of complaints. Patient states that she has had long-standing problems with fatigue. This past summer, she was diagnosed with anemia and treated with B12 shots, which may have helped some. Then, 2 weeks ago, she began to notice pre-syncopal symptoms and increased fatigue. These symptoms were accompanied by head and eye pressure as well as upper and lower extremity "tingling". She had a similar episode of eye pressure several months ago after a course of minocycline prescribed for acne. She denies photo/phonophobia or pulsating pain with her headaches. She also denies any visual disturbances. She has been seen in the ED several times for these symptoms over the last week and also established care with a neurologist, who ordered a brain MRI. Tonight she felt like her symptoms were getting worse and that she maybe had some word finding difficulty and difficulty swallowing, so she came to the ED. At the time of my evaluation patient is largely asymptomatic aside from "possibly" feeling subtle numbness on her left side. History Information - Allergies/Home Medication List Allergies/Adverse Reactions: amoxicillin Allergy (Intermediate, Verified 01/05/17 18:17) Rash tetracycline Allergy (Intermediate, Verified 01/05/17 18:17) Other-Enter Comments avocado Allergy (Verified 01/05/17 18:17) Milk Containing Products [dairy] Allergy (Verified 01/05/17 18:17) animals Allergy (Uncoded 01/01/17 21:47) Home Medications: Cyanocobalamin [Vitamin B12 1000MCG/ML (*)] 1,000 mcg IM Q7D 01/10/17 [Last Taken 01/05/17] Herbals/Supplements -Info Only 1 ea PO DAILY 01/10/17 [Last Taken 01/10/17] Ibuprofen [Motrin (*)] 400 mg PO Q4-6PRN PRN 01/10/17 [Last Taken 01/05/17] I have personally reviewed and updated: family history, medical history - Past Medical History Additional medical history: Chronic fatigue syndrome - Surgical History Reports: no pertinent surgical hx - Family History Additional family history: Sjogren's, ?SLE - Social History Smoking Status: Never smoked Alcohol Use: Occasionally Drug Use: None Review of Systems Review of Systems: ROS: 10pt was reviewed & negative except for what was stated in HPI & below Physical Exam Physical Exam: Temp Pulse Resp BP Pulse Ox 36.8 C 67 16 114/77 96 01/10/17 22:10 01/10/17 22:10 01/10/17 22:10 01/10/17 22:10 01/10/17 22:10 Constitutional: no apparent distress, appears nourished Eyes: PERRL, EOMI Ears, Nose, Mouth, Throat: moist mucous membranes, no oral mucosal ulcers Cardiovascular: regular rate and rhythym, no murmur, rub, or gallop Respiratory: no respiratory distress, clear to auscultation Gastrointestinal: normoactive bowel sounds, soft, non-tender abdomen Skin: warm, no rashes or abrasions Musculoskeletal: full muscle strength, no muscle tenderness Neurologic: AAOx3, sensation intact bilaterally, CN II-XII Intact, other ( Intact finger to nose, heel to fry. NIHSS 0.), No weakness, No numbness, No pronator drift, No facial droop Psychiatric: interacting appropriately, anxious Lab Data & Imaging Review 01/10/17 17:45 01/10/17 17:45 WBC 3.52 10^3/uL (3.80-9.50) L 01/10/17 17:45 RBC 4.39 10^6/uL (4.18-5.33) 01/10/17 17:45 Hgb 13.1 g/dL (12.6-16.3) 01/10/17 17:45 Hct 38.8 % (38.0-47.0) 01/10/17 17:45 MCV 88.4 fL (81.5-99.8) 01/10/17 17:45 MCH 29.8 pg (27.9-34.1) 01/10/17 17:45 MCHC 33.8 g/dL (32.4-36.7) 01/10/17 17:45 RDW 13.8 % (11.5-15.2) 01/10/17 17:45 Plt Count 232 10^3/uL (150-400) 01/10/17 17:45 MPV 11.7 fL (8.7-11.7) 01/10/17 17:45 Neut % (Auto) 42.7 % (39.3-74.2) 01/10/17 17:45 Lymph % (Auto) 44.3 % (15.0-45.0) 01/10/17 17:45 [place] % (Auto) 9.9 % (4.5-13.0) 01/10/17 17:45 Eos % (Auto) 1.1 % (0.6-7.6) 01/10/17 17:45 Baso % (Auto) 2.0 % (0.3-1.7) H 01/10/17 17:45 Nucleat RBC Rel Count 0.0 % (0.0-0.2) 01/10/17 17:45 Absolute Neuts (auto) 1.50 10^3/uL (1.70-6.50) L 01/10/17 17:45 Absolute Lymphs (auto) 1.56 10^3/uL (1.00-3.00) 01/10/17 17:45 Absolute Monos (auto) 0.35 10^3/uL (0.30-0.80) 01/10/17 17:45 Absolute Eos (auto) 0.04 10^3/uL (0.03-0.40) 01/10/17 17:45 Absolute Basos (auto) 0.07 10^3/uL (0.02-0.10) 01/10/17 17:45 Absolute Nucleated RBC 0.00 10^3/uL (0-0.01) 01/10/17 17:45 Immature Gran % 0.0 % (0.0-1.1) 01/10/17 17:45 Immature Gran # 0.00 10^3/uL (0.00-0.10) 01/10/17 17:45 PT 13.8 SEC (12.0-15.0) 01/10/17 17:45 INR 1.07 (0.83-1.16) 01/10/17 17:45 APTT 33.3 SEC (23.0-38.0) 01/10/17 17:45 Sodium 139 mEq/L (134-144) 01/10/17 17:45 Potassium 3.6 mEq/L (3.5-5.2) 01/10/17 17:45 Chloride 105 mEq/L (97-110) 01/10/17 17:45 Carbon Dioxide 23 mEq/l (22-31) 01/10/17 17:45 Anion Gap 11 mEq/L (8-16) 01/10/17 17:45 BUN 6 mg/dL (7-23) L 01/10/17 17:45 Creatinine 0.8 mg/dL (0.6-1.0) 01/10/17 17:45 Estimated GFR > 60 01/10/17 17:45 Glucose 84 mg/dL (70-100) 01/10/17 17:45 Calcium 9.5 mg/dL (8.5-10.4) 01/10/17 17:45 Troponin I < 0.012 ng/mL (0.000-0.034) 01/10/17 17:45 Beta HCG, Qual NEGATIVE 01/10/17 17:45 Imaging Review: MRI brain and C-spine without abnormalities. Visualized and Interpreted Chest x-ray results: Yes Chest X-Ray results: no infiltrate, normal Visualized and Interpreted EKG results: Yes EKG Interpretation: Positive for: normal sinsus rhythm, NS ST wave abnormalities Assessment & Plan Assessment: 36 yo F w/ self-reported history of chronic fatigue presents with myriad of symptoms including pre-syncope, paresthesias, and headache. Plan: 1. Paresthesias - Associated with fatigue, pre-syncope, and headache. MRI brain , C-spine, and neurologic exam all within normal limits; NIHSS 0 on admission. Noting normal findings I believe that structural brain disease, MS, and seizures seem unlikely. 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 Remaining differential is broad and includes TIA, complex migraines, idiopathic intracranial hypertension, inflammatory condition(positive family hx) , anxiety, and somatization. test negative in ED. - Will order carotid ultrasound to finish TIA work-up - Will add ESR/CRP to morning labs to screen for inflammatory condition - Neurology consult placed to help consider IIH and diagnostic utility of LP Diet - Regular Ppx - Low risk, ambulate TID Code - Full Dispo - Admit to observation, expect patient will be able to discharge after neurology consultation
[2017-01-11] MEDS: ACETAMINOPHEN 325 MG TAB PO PRN (00:25)
[2017-01-11 05:20] LABS: % IMMATURE GRANULYOCYTES 0.2 % (0.0-1.1); ABSOLUTE IMMATURE GRANULOCYTES 0.01 10^3/uL (0.00-0.10); ADD DIFF? NO; ADD MORPH? NO; ADD SCAN? NO; ATYPICAL LYMPHOCYTE FLAG 10 (0-99); FRAGMENT RBC FLAG 0 (0-99); HEMATOCRIT 37.9 % (38.0-47.0); HEMOGLOBIN 12.7 g/dL (12.6-16.3); LEFT SHIFT FLG 0 (0-99); LIPEMIA HEMOLYSIS FLAG 80 (0-99); MEAN CELL HEMOGLOBIN 29.8 pg (27.9-34.1); MEAN CELL HEMOGLOBIN CONCENTR. 33.5 g/dL (32.4-36.7); PLATELET CLUMPS FLAG 0 (0-99); PLATELET COUNT 253 10^3/uL (150-400); RED BLOOD CELL COUNT 4.26 10^6/uL (4.18-5.33); RED CELL DISTRIBUTION WIDTH 13.7 % (11.5-15.2)
[2017-01-11 05:38] LABS: ALANINE AMINOTRANSFERASE 25 IU/L (9-52); ALBUMIN 3.6 g/dL (3.5-5.0); ALKALINE PHOSPHATASE 34 IU/L (38-126); ANION GAP 9 mEq/L (8-16); ASPARTATE AMINOTRANSFERASE 14 IU/L (14-46); BILIRUBIN,TOTAL 0.6 mg/dL (0.1-1.4); CALCIUM 9.2 mg/dL (8.5-10.4); CARBON DIOXIDE 26 mEq/l (22-31); CHLORIDE 104 mEq/L (97-110); CREATININE 0.8 mg/dL (0.6-1.0); GLOMERULAR FILTRATION RATE > 60; GLUCOSE 83 mg/dL (70-100); POTASSIUM 4.3 mEq/L (3.5-5.2); SODIUM 139 mEq/L (134-144); TOTAL PROTEIN 6.2 g/dL (6.3-8.2)
[2017-01-11 05:52] LABS: HIGHLY SENSITIVE CRP < 0.1 mg/L
[2017-01-11 06:06] LABS: SEDIMENTATION RATE 8 MM/HR (0-20)
--- NOTE | 2017-01-11 10:07 | NEUROPROG ---
Assessment: [id number] CC: Dr. Tate Canales consulted neurology for paresthesias. 348 HPI: Pt presented to [facility] ER 01/10/17 with complaints of long-standing chronic fatigue syndrome. She reported the past 2 weeks she has noted pre-syncope and increased fatigue with head/eye pressure as well as upper and lower extremity tingling. She also noted possible speech issues. Brain/Cervical MRI were unremarkable. She was followed by Dr. Meraz in the outpatient neurology clinic with whom I also discussed her case. PMHx: chronic fatigue syndrome, Home Meds: B12 injections, motrin SHx: no tobacco FHx: Sjogrens, SLE ROS: Pt denied acute fever, total vision loss, active severe chest pain, respiratory failure, total body severe rash, total bowel/bladder incontinence, psychosis, active seizures, or active bleeding O: VS reviewed General: Alert Eyes: Fundoscopic exam not able to visualize optic disks CV: Heart RRR, no murmur, no carotid bruit Lungs: Clear to auscultation bilaterally, no rhonci or rales Neuro: - Mental: . Oriented x person/place/date . concentration appears normal . speech fluency/comprehension normal . memory appears normal . fund of knowledge appear intact - Cranial Nerves: . II: PERRL, VFFTC . III/IV/: EOMI, no nystagmus, normal smooth pursuits, no Ptosis . V: facial sensation intact to LT . VII: face symmetric to eye closure and smile . VIII: hearing intact to conversation . IX/X: uvula raises symmetrically . XI: SCM 5/5 B/L strength . XII: tongue protrudes midline w/nl strength - Motor: . Tone: normal tone in all 4 extrem . Strength: no pronator drift, strength 5/5 throughout (B/L delt, bic, tri, hand beater room helper, hf/he, df/pf) - Reflexes: B/L bic/BR/patella 2/4 - Sensory: all 4 extrem intact to light touch - Coord: [id number] wnl, CHERELLE wnl, [id number] wnl - Gait: normal casual gait Labs: 01/11/17- CBC Hct 37.9L, ESR 8, CMP Alk Phos 34L, CRP neg, TSH wnl, HCG neg Rads: 01/10/17- Brain MRI w/ and w/o con: normal (I personally visualized the images on 01/11/17) 01/10/17- Cervical MRI w/ and w/o con: normal 01/10/17- Carotid U/S: unremarkable Assessment: 1. Chronic fatigue, headache, pre-syncope, paresthesias: Normal neurologic exam on 01/11/17 and unremarkable brain/cervical MRI. She likely has a chronic condition like migraine. However, rare disease process like pseudotumor cerebri (IIH) or occult cardiac issues are possible so we will proceed to fully rule these possibilities out. Plan: - Lumbar puncture with opening pressure and labs (protein, glucose, cell count, culture) - Cardiology referral for presyncope symptoms - Begin gabapentin 300 mg qhs for symptomatic control (This will take 4-8 weeks for maximum effect so she should not expect to be symptom free when she leaves the hospital, it will take time) - Avoid all opiates or benzodiazepines to avoid risk of drug dependency (low utility in migraines) - If above testing is unremarkable then f/u with Dr. Meraz in 1 week in neurology clinic Objective: Vital Signs Temp Pulse Resp BP Pulse Ox 36.8 C 98 16 98/69 L 98 01/11/17 08:00 01/11/17 08:00 01/11/17 08:00 01/11/17 08:00 01/11/17 08:00 Laboratory Results 01/11/17 04:29 01/11/17 04:29 PT 13.8 SEC (12.0-15.0) 01/10/17 17:45 INR 1.07 (0.83-1.16) 01/10/17 17:45 Allergies/Adverse Reactions: amoxicillin Allergy (Intermediate, Verified 01/05/17 18:17) Rash tetracycline Allergy (Intermediate, Verified 01/05/17 18:17) Other-Enter Comments avocado Allergy (Verified 01/05/17 18:17) Milk Containing Products [dairy] Allergy (Verified 01/05/17 18:17) animals Allergy (Uncoded 01/01/17 21:47)
[2017-01-11] MEDS ORDERED: IBUPROFEN 200 MG TAB PO PRN (14:28)
[2017-01-11] MEDS ORDERED: CYANO/VITAMIN B12 1000 MCG/ML VIAL IM SCH (14:30)
--- NOTE | 2017-01-11 15:49 | HOSPPROG ---
Hospitalist Progress Note Assessment/Plan: I have met with the patient and reviewed her symptoms. She is feeling slightly better now but remains symptomatic. Her symptoms are numerous and do not fit will into any one diagnosis or really even localize to a system or organ. There is really not much to suggest any infection or inflammation. She has remained with normal vital signs here. The question of IIH has come up; this may be reasonable given her headache and occular symptoms, though she is not overweight, and this would not explain most of her symptoms. CFS can be associated with symptoms of neurogenic orthostasis, and she could have this but again it would not explain all of her symptoms. We do not have a tilt table here anymore. I doubt this is cardiac in origin and once again a lot of her symptoms could not be explained by an arrythmia. I have reviewed the indications, specific procedures, and potential complications of lumbar puncture, and at present she is agreeing to this so I have ordered LP to be done in radiology. Will review further with her after that Objective: Vital Signs Temp Pulse Resp BP Pulse Ox 36.8 C 66 16 112/80 97 01/11/17 08:00 01/11/17 11:29 01/11/17 11:29 01/11/17 11:29 01/11/17 11:29 Laboratory Results 01/11/17 04:29 01/11/17 04:29 01/10/17 01/11/17 01/12/17 06:59 06:59 06:59 Intake Total 200 Balance 200 PT 13.8 SEC (12.0-15.0) 01/10/17 17:45 INR 1.07 (0.83-1.16) 01/10/17 17:45 ICD10 Worksheet Patient Problems: Problems Problem Status Onset Paresthesia Acute
--- NOTE | 2017-01-11 16:09 | ASMTCMCOM ---
CM Note CM Note Notes: Pt presents with facial paresthesia, dysarthria, extremity paresthesia, has a history of chronic fatigue. Neurology is consulting, pt to have lumbar puncture. No therapies ordered. Unknown at this time if pt will have case management d/c needs. Case management to follow. Date Signed: 01/11/2017 04:09 PM Electronically Signed By:ROBBY Valdez
[2017-01-11] MEDS ORDERED: LIDOCAINE 1% 300 MG/30 ML SDV ONE (17:16)
[2017-01-11 18:50] LABS: CSF APPEARANCE CLEAR (CLEAR); CSF COLOR COLORLESS (COLORLESS)
[2017-01-11 19:06] LABS: PROTEIN, CSF 19 mg/dL (12-60)
[2017-01-11 19:18] LABS: WBC, CSF 0 /mm3 (0-5)
[2017-01-12] MEDS: ACETAMINOPHEN 325 MG TAB PO PRN ×3 (00:38→20:42)
--- NOTE | 2017-01-12 10:22 | NEUROPROG ---
Assessment: [id number] CC: F/U for atypical migraines Narrative Summary: Pt presented to [facility] ER 01/10/17 with complaints of long-standing chronic fatigue syndrome. She reported the past 2 weeks she has noted pre-syncope and increased fatigue with head/eye pressure as well as upper and lower extremity tingling. She also noted possible speech issues. Brain/Cervical MRI were unremarkable. She was followed by Dr. Meraz in the outpatient neurology clinic with whom I also discussed her case. HPI: Inpatient f/u 01/12/17. Spinal tap showed unremarkable labs and normal opening pressure. Cardiology consult has not occurred yet. Pt feels better. PMHx: chronic fatigue syndrome FHx: Sjogrens, SLE ROS: Pt denied acute fever, total vision loss, active severe chest pain, respiratory failure, total body severe rash, total bowel/bladder incontinence, psychosis, active seizures, or active bleeding Labs: 01/11/17- CBC Hct 37.9L, ESR 8, CMP Alk Phos 34L, CRP neg, TSH wnl, HCG neg 01/11/17- CSF clear/colorless, opening pressure 9 (nl), WBC 0, RBC 0, Prot 19, GLuc 48L Rads: 01/10/17- Brain MRI w/ and w/o con: normal (I personally visualized the images on 01/11/17) 01/10/17- Cervical MRI w/ and w/o con: normal 01/10/17- Carotid U/S: unremarkable Assessment: 1. Atypical Migraines causing Chronic fatigue, headache, presyncope, paresthesias: Normal neurologic exam on 01/11/17, unremarkable spinal tap (including normal opening pressure), and unremarkable brain/cervical MRI 01/10. She likely has a chronic condition like migraine. However, rare disease process like occult cardiac issues are possible so we will proceed to fully rule these possibilities out. Plan: - Cardiology referral for presyncope symptoms (low yield and could be done in the outpatient setting in my opinion but patient requests this occur inpatient) - Begin gabapentin 300 mg qhs for symptomatic control (This will take 4-8 weeks for maximum effect so she should not expect to be symptom free when she leaves the hospital, it will take time) - Avoid all opiates or benzodiazepines to avoid risk of drug dependency (low utility in migraines) - F/u with Dr. Meraz in 1 week in neurology clinic Neurology will sign off 35 min spent with patient, majority of time discussing her symptoms and possible causes. Objective: Vital Signs Temp Pulse Resp BP Pulse Ox 36.4 C 75 16 108/70 97 01/12/17 08:00 01/12/17 08:00 01/12/17 08:00 01/12/17 08:00 01/12/17 08:00 01/11/17 01/12/17 01/13/17 05:59 05:59 05:59 Intake Total 830 Balance 830 PT 13.8 SEC (12.0-15.0) 01/10/17 17:45 INR 1.07 (0.83-1.16) 01/10/17 17:45 Allergies/Adverse Reactions: amoxicillin Allergy (Intermediate, Verified 01/05/17 18:17) Rash tetracycline Allergy (Intermediate, Verified 01/05/17 18:17) Other-Enter Comments avocado Allergy (Verified 01/05/17 18:17) Milk Containing Products [dairy] Allergy (Verified 01/05/17 18:17) animals Allergy (Uncoded 01/01/17 21:47)
--- NOTE | 2017-01-12 15:33 | ECHO ---
[id number] + + [address] : : [place] [address] : : [phone] + + Adult Echocardiographic Report + ----+ :Name: MOUSTAPHA SEE RStudy Date: 01/12/2017 02:43 PM : : Hospital Admission Number: [id number] Location: 348: :: 1980 Gender: Female Height: 68 in : :Age: 36 yrs Race: WH Weight: 125 lb : :Reason For Study: Fatigue/palpation : : BSA: 1.7 meters2 : + ----+ MMode/2D Measurements & Calculations Ao root diam: 3.6 cm LVLd ap4: 7.5 cm SV(MOD-sp4): 41.0 ml LA dimension: 2.7 cm EDV(MOD-sp4): 61.0 ml LVLs ap4: 6.4 cm ESV(MOD-sp4): 20.0 ml EF(MOD-sp4): 67.2 % Normal Measurement Values: + + :LVIDd (3.5-5.7cm) IVSd (0.6-1.1cm) LVPWd (0.6-1.1cm) Aortic Root (2.0-3.7cm)Left Atrium (1.5-4.0cm): :LV Vol(d) (76-115ml) LV Vol(s) (29-48ml) Ejec Fraction (50-65%)PV Laith (0.6- 1.2m/s) TV Laith (0.4-1.0m/s) : :MV E Laith (0.8-1.0m/s)MV A Laith (0.3-1.0m/s)LVOT Laith (0.7-1.2m/s) Asc Ao Laith ( 0.9-1.8m/s) : + + Doppler Measurements & Calculations MV E max laith: 62.7 cm/sec Ao V2 max: 105.9 cm/sec MV A max laith: 74.0 cm/sec Ao max P.5 mmHg MV E/A: 0.85 Left Ventricle The left ventricle is normal in size. There is normal left ventricular wall thickness. Left ventricular systolic function is normal. Ejection Fraction = 60-65%. No regional wall motion abnormalities noted. Right Ventricle The right ventricle is normal in size and function. Atria The left atrial size is normal. Right atrial size is normal. The interatrial septum is intact with no evidence for an atrial septal defect. Mitral Valve The mitral valve is normal in structure and function. There is no evidence of mitral valve prolapse. There is no mitral valve stenosis. There is trace mitral regurgitation. Tricuspid Valve Normal tricuspid valve. There is trace tricuspid regurgitation. Aortic Valve The aortic valve is trileaflet. The aortic valve opens well. There is no aortic stenosis. There is no aortic insufficiency. Pulmonic Valve The pulmonic valve is normal in structure and function. Trace pulmonic valvular regurgitation. Great Vessels The aortic root is normal size. Pericardium/Pleural There is no pericardial effusion. Conclusion A complete two-dimensional transthoracic echocardiogram was performed (2D, M-mode, Doppler and color flow Doppler). Left ventricular systolic function is normal. Ejection Fraction = 60-65%. There is trace mitral regurgitation. There is trace tricuspid regurgitation. Final Reading Physician: Yamel Call signed on 01/12/2017 03:31 PM Ordering Physician: Ronald Mann Performed By: Nereida Suarez RDCS
--- NOTE | 2017-01-12 17:13 | GCON ---
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 Daniel Davis. INDICATION FOR CONSULTATION: Fatigue symptoms, lightheadedness, near-syncope. HISTORY OF PRESENT ILLNESS: The patient is a 36-year-old female, she reports no significant cardiac history. She does report an ongoing history of chronic fatigue syndrome. She reports since Labor Da y, she has been having episodes of sudden lightheadedness, feeling occasionally faint, she also repor ts that she has been feeling more weak than usual, and that she has had tingling in her feet and hand s. She reports these symptoms have been persistent for the last 4 weeks. She has had 4 different em ergency department visits. She does report, besides her long-standing history of fatigue problems, a nemia with which she was diagnosed last year, in which she was seen by Hematology, who placed her on B12 and iron, and reports that has resolved. She also reports occasional episode of migraines. She reports no chest pain or pressure, but does report occasional episode of palpitations, reporting comi ng on a few times during the day, uncertain if they are associated with the near-syncopal events that she has had in the last few weeks, but does report that they last for a few seconds, and then dissip ate. They seemed to have been increasing over the last period. She denies any actual syncope or syn copal events. She does report prior to this emergency visit, she has been dealing with all of these symptoms, and then had started having episodes of tingling in her arms, and finding it difficult to f ind words, and presented with slurred speech. On this hospital visit, upon arrival to the emergency department, she did have a chest x-ray done whi ch showed no acute cardiopulmonary process, electrocardiogram done showing sinus rhythm with no acute ST or T-wave abnormalities. She has had laboratory studies drawn, showing normal TSH level, and neg ative troponins x2. She has undergone a brain MRI which showed no significant findings, and cervical spine MRI which was also normal. She has also had a carotid ultrasound done which showed no flow-li miting disease, and a lumbar puncture done showing normal pressures, no other significant findings. She is noted not to be anemic, and normal electrolyte and renal functions. She denies any recent fev ers, chills, or night sweats. Denies any orthopnea, PND, edema. Her cardiac risk factors, she does report a mild hypercholesterolemia, with previous testing done by PCP. She does have family history of coronary artery disease in her paternal grandmother but over th e age of 70. She denies of any family history of sudden cardiac . PAST MEDICAL HISTORY: 1. As mentioned above, self-reported chronic fatigue syndrome. 2. Reported history of migraines, and reported history of anemia. FAMILY HISTORY: Patient reports paternal grandmother having myocardial infarction in her 70s. She a lso has family history of hypertension and CVAs. 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 She has no children. She does admit to occasion al marijuana use, 2-3 times a year, socially, but denies of any other illicit drug use. ALLERGIES: Patient states allergies of amoxicillin, tetracyclines, avocado, milk products, and anima l hair. HOME MEDICATIONS: Include Motrin 400 mg p.o. q. 4-6 hours p.r.n., herbs and supplements p.o. daily, vitamin B12 1000 mcg IM q. 7 days. REVIEW OF SYSTEMS: A 10-point review of systems done on patient all negative except as mentioned abo ve. PHYSICAL EXAMINATION: GENERAL APPEARANCE: Thin, well-groomed, female. She is alert and o riented to person, place, time, and situation. Appears to be under no acute distress. CURRENT VITAL SIGNS: Blood pressure of 97/60, heart rate of 73, sinus rhythm on the monitor, respirations 16, sat urating 96% on room air. Temperature 36.7 degrees Celsius. HEENT: Head is normocephalic. Lips and tongue are pink and moist with no signs of cyanosis. Conjunctivae pink. NECK: Trachea is midline, +2 carotid pulses bilateral. No auscultated bruits. No jugular vein distention. RESPIRATORY: Blaise gs clear to auscultation. No rhonchi, rales or wheezes. No accessory muscle use, no intercostal mus kaitlin retraction noted. CARDIAC: Regular rate, regular rhythm, S1, S2, no S3, S4, gallops, rubs or mu rmur noted. ABDOMEN: Soft, nontender, bowel sounds x4 quadrants, palpable aorta, no auscultated bru it. SKIN: Marlow, warm, dry, no cyanosis, no clubbing, no peripheral edema. VASCULAR: +2 carotids b ilateral, +2 radials bilateral, +2 dorsal pedal and posterior tibial pulses bilateral. LABORATORY STUDIES: Studies drawn on the showed WBC of 6.0, hemoglobin of 12.7, hematocrit of 3 7.9, platelet count of 253. Sodium 139, potassium 4.3, chloride 104, CO2 26, BUN 10, creatinine 0.8, glucose 83, calcium 9.2, total bilirubin 0.6, AST 14, ALT 25, alkaline phosphate 34. C-reactive pro tein, high sensitivity less than 0.1. Total protein 6.2, albumin 3.6. TSH 2.380. The patient had b een noted to have 2 negative troponins of less than 0.012 since hospitalization. She has also been t ested for , which was negative. STUDIES: Electrocardiogram as mentioned above. Chest x-ray as mentioned above. Carotid Doppler as mentioned above, cervical and brain MRI as mentioned above. Lumbar puncture as mentioned above. The patient did have an echocardiogram done this afternoon showing normal LV systolic function, EF of 60 % to 65%, trace MR, trace TR. No other significant structural heart disease. ASSESSMENT AND PLAN: Palpitations: This patient reporting episodes of palpitations happening on a d aily basis. She has normal TSH, normal electrolyte and renal function, no anemia. She has been on c ontinuous clinical research monitor, I reviewed since her admission to the 3rd floor, which has shown no arrhyt hmias, pauses, or premature beats. She has a structurally normal heart. I do think that because of her complaints of near-syncope, we should consider placing her on an outpatient monitor for further e valuation, consider a 30-day event monitor. Near-syncope: Patient reporting episodes of near syncope, uncertain if this is due with palpitations or not. Holter monitoring as mentioned above. The patient does report that her near syncopal event s have happened both times when she is standing, I would like her to have orthostatic blood pressures done today. Atypical migraine. She has fatigue symptoms with history of migraines and paresthesia. She has been seen by Neurology, who has started her on gabapentin. Her spinal tap was unremarkable, MRI of the b rain, and spine unremarkable. Carotid ultrasound negative for flow-limiting disease. She will sherri gennaroe to follow up with Neurology as outpatient. Thank you for this consultation, we will be glad to follow along with you. /[id number]/MODL
[2017-01-12] MEDS: FLUDROCORTISONE ACETATE 0.1 MG TAB PO SCH (17:23)
--- NOTE | 2017-01-12 17:50 | HOSPPROG ---
Hospitalist Progress Note Assessment/Plan: I reviewed the patient's case in great detail today with doctors Manjeet and Susan I spent approximately 1 hour and 10 minutes at the bedside discussing the patient's case, diagnostic test findings, her diagnosis of orthostatic hypotension, potential causes of that, the beginnings of diagnostic evaluation for cause, and our initial treatment recommendations. DIAGNOSES: -marked orthostatic hypotension with abnormal symptoms and measured numbers, uncertain etiology -wide range of discomforts and other symptoms are most likely due to her orthostasis; these include a uncomfortable sensation of pressure in her head, an empty 5 sensation in her neck and chest, some paresthesias, sense of weakness in various body parts, nausea, and others -longstanding history of chronic fatigue syndrome In looking at potential causes for her onset of orthostasis in the last 10 days to weeks, it is remarkable that she recounts febrile episode approximately 6 to eat weeks ago followed by some uncomfortable adenopathy around 3-4 weeks ago all of which have resolved since. It raises a question of a post viral syndrome which could potentially be related to Mohinder Bar, CMV, HIV or others. Will have to carefully interpret antibody levels but antibody levels for CMV and Mohinder-Shen will be order to make sure there is no sign of recent infection. An HIV test will also be ordered. Outside of post viral she has no trouble with fluid intake or known abnormal fluid losses so I do not think this is likely a volume issue. It seems quite unlikely she would suddenly developed diabetes insipidus. More likely this is either adrenal insufficiency (she does have family history of autoimmune disease), or an autonomic insufficiency which could have myriad possible causes. She does not at this time present with symptoms exam findings are laboratory findings to specifically suggest an autoimmune, abnormal protein related, or malignant condition that would cause autonomic insufficiency. Autonomic insufficiency can be seen in patients with chronic fatigue syndrome but this still would not give us an explanation for the mechanism or cause of her orthostasis specifically. In terms of further assessment, it will be very useful at this time to get an adrenal stim test in the morning so I have ordered a Cortrosyn stim test for tomorrow morning. I will get urine studies to look and make sure there is anything about her urine sample that would make his consider the possibility of DI but seems like very unlikely. She has a normal TSH. We do not have a tilt- table here to do testing to try and assess for a likely Neurologic mediated orthostasis and at some point it could possibly be helpful to have her referred in the outpatient setting to a center that has a tilt-table. As mentioned I will be ordering serologically studies to test for Mohinder-Shen CMV and HIV. I do not think it makes any sense at this time to start doing further testing to look for the many causes of neurogenic autonomic insufficiency causing orthostasis until she has gone through these other diagnostic steps. In terms of management at this time I will give her some saline overnight, we recommended that she wear compression stockings and a trial of Florinef. I anticipate that she should be able to discharge to home with these treatments in place and follow up with Dr. Meraz in Neurology Clinic. Cardiology team is recommended outpatient radiographer cardiac catheterization testing although I think this is unlikely to identify anything other than her significant orthostasis. PLANS: -saline hydration overnight -Rusty stockings here and at home -Florinef 0.1 mg twice daily -monitor results of these interventions here and at home -course in stent testing morning -serologies for EBV, CMV, HIV -potentially tilt-table evaluation in the output setting if that is available somewhere for her to be referred to PENDING TEST RESULTS AT THIS TIME -oligoclonal bands from CSF -high at viral titers as mentioned above NORMAL TEST RESULTS HERE SO FAR: -MRI of brain -MRI of cervical spine -carotid Doppler imaging -lumbar puncture with opening pressure of 9 and initial CSF studies -cardiac EKG monitoring which has been all normal sinus rhythm -echocardiogram -CBC, sedimentation rate, CRP, and chemistries are unrevealing SUBJECTIVE: She continues to be fairly symptomatic but today her symptoms are much more clearly orthostatic in nature OBJECTIVE Vitals reviewed: Normal at rest but she has had significant orthostatic changes with a 40 point increase in pulse from lying to standing and some decrease in blood pressure [employer], my review: All normal sinus rhythm Exam: alert oriented skin warm dry color ok resps not labored lungs clear BSs heart regular abd soft nondistended nontender, bowel sounds present limbs warm, no edema iv site ok CSF opening pressure was at 9 last evening, and the initial CSF studies unremarkable Echocardiogram unrevealing for any significant abnormality Objective: Vital Signs Temp Pulse Resp BP Pulse Ox 36.9 C 79 14 121/82 H 96 01/12/17 15:57 01/12/17 15:57 01/12/17 15:57 01/12/17 15:57 01/12/17 15:57 01/11/17 01/12/17 01/13/17 06:59 06:59 06:59 Intake Total 830 Balance 830 PT 13.8 SEC (12.0-15.0) 01/10/17 17:45 INR 1.07 (0.83-1.16) 01/10/17 17:45 ICD10 Worksheet Patient Problems: Problems Problem Status Onset Paresthesia Acute
[2017-01-12] MEDS: NS 1,000 ML IV SCH (18:34)
[2017-01-12] MEDS ORDERED: GABAPENTIN 300 MG CAP PO SCH (21:00)
[2017-01-13] MEDS ORDERED: COSYNTROPIN 0.25 MG/2 ML SYRINGE IVP ONE (06:00)
[2017-01-13] MEDS: NS 1,000 ML IV SCH (07:46)
[2017-01-13] MEDS: FLUDROCORTISONE ACETATE 0.1 MG TAB PO SCH (09:28)
[2017-01-13 11:56] VITALS: BP 108/72; PULSE 90; RESP 13; TEMP 98.6; O2SAT 97
--- NOTE | 2017-01-13 14:43 | ASMTCMCOM ---
CM Note CM Note Notes: Pt medically stable for d/c, no case management d/c needs identified. Date Signed: 01/13/2017 02:42 PM Electronically Signed By:ROBBY Valdez
--- NOTE | 2017-01-13 16:40 | ASDISCHSUM ---
Discharge Information Plan Status:Home with No Needs Medically Cleared to Leave: Discharge Date:01/13/2017 03:23 PM CM D/C Disposition:Home, Routine, Self-Care ADT D/C Disposition:Home, Routine, Self-Care Projected Discharge Date:01/13/2017 03:23 PM Transportation at D/C: Discharge Delay Reason: Follow-Up Date:01/13/2017 03:23 PM Discharge Slot: Final Diagnosis: Placement Information Patient Contact Information Contact Name:RHINA Relationship:Cousin Address: Work Phone: City: [facility] Phone: State/Zip Code: Email: Financial Information Financial Class: Primary Plan Desc:[employer] Primary Plan Number:[id number] Secondary Plan Desc: Secondary Plan Number: Assessment Information [facility] CM Progress Note CM Note CM Note Notes: Pt presents with facial paresthesia, dysarthria, extremity paresthesia, has a history of chronic fatigue. Neurology is consulting, pt to have lumbar puncture. No therapies ordered. Unknown at this time if pt will have case management d/c needs. Case management to follow. Date Signed: 01/11/2017 04:09 PM Electronically Signed By:ROBBY Valdez [facility] CM Progress Note CM Note CM Note Notes: Pt medically stable for d/c, no case management d/c needs identified. Date Signed: 01/13/2017 02:42 PM Electronically Signed By:ROBBY Valdez Intervention Information
--- NOTE | 2017-01-13 16:57 | PDDCSUM ---
Discharge Summary Discharge Summary: DISCHARGE SUMMARY FOLLOW-UP ITEMS: 1. Pending EBV/CMV CSF labs 2. Highly recommend the patient be established with a therapist/psychiatrist and a functional medicine specialist DATE OF ADMISSION: 01/10/2017 DATE OF DISCHARGE: 01/13/2017 DISCHARGE DIAGNOSES: 1. 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 Suspected POTS 3. Possible atypical migraine CONSULTATIONS: Neurology PROCEDURES / IMAGING: Brain MRI normal, cervical spine MRI normal, carotid ultrasounds normal CHIEF COMPLAINT: Acute lightheadedness, facial paresthesias, globus sensation, peripheral paresthesias, focal abdominal pain SUBJECTIVE: Patient continues to experience intermittent facial paresthesias, globus sensation, abdominal pain, but she appears completely comfortable during our discharge exam PHYSICAL EXAM ON DISCHARGE: Systolic blood pressure 100 to 110, heart rate 60-80, afebrile overnight, satting well on room air, alert awake oriented x3, patient is intermittently distressed by the content of our conversation, she is able to sit upright without any visible symptoms and she is mentating normally, no dysarthria, has facial symmetry, is moving both sides of her body without any difficulty LABS ON DISCHARGE: White blood cell count 6000, hemoglobin 12.7, platelets [id number], normal cosyntropin stim test, TSH 2.38, troponin negative x2, CRP is completely normal , test negative, creatinine 0.8, liver panel completely normal, potassium 4.3, serum sodium 139, ESR 8, CSF study completely normal, HIV test normal - in summary, every test is normal HOSPITAL COURSE BY PROBLEM: 1. 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 The patient is presenting with multi-system complaints including central neurologic, gastrointestinal, peripheral neurologic, autonomic. No structural underlying etiology was identified. She was ruled out for infection, ruled out for any central neurologic etiology, ruled out for any peripheral neurologic etiology, ruled out for any cardiovascular anomaly. Her liver panel argues against any biliary obstruction and no further inpatient workup for her abdominal discomfort is warranted. The patient was ruled out for adrenal insufficiency with a normal cosyntropin stem test. It is exceptionally unlikely that she has an underlying rheumatologic issue, with ESR and CRP completely normal. It seems very unlikely that any of her symptoms are manifestations of a vitamin deficiency ( b12), as her hemoglobin level is normal. The only abnormality identified was postural orthostatic tachycardia and I suspect that the patient has POTS, which is a known autonomic expression of underlying functional, distress and/or mood mediated disorder. We discussed these findings extensively and the patient is skeptical of our conclusions. We discussed the cumulative effects of stress and its impact on the body. At this time, I do not recommend any further diagnostic workup. That being said, for completeness sake, we are offering an outpatient 30 day event monitor to ensure that the patient does not have unidentified intermittent tachyarrhythmia corresponding to her presenting symptoms of lightheadedness. The cardiology service is facilitating this workup and will see her in the clinic after the 30 day event monitor has been completed. I also do not strongly recommended a tilt-table test but the patient is certainly permitted to pursue one through her outpatient neurology office and I have recommended that she follow up with Dr. Jama Meraz in order to further discuss her ongoing symptoms. 2. Suspected POTS. The patient did have objective orthostasis (decline in SBP and objective tachycardia, with symptoms of lightheadedness) and this was improved with introduction of Florinef. That being said, the patient's symptoms did not seem to overtly respond to the Florinef, consequently, I suspect that she is experiencing symptomatic symptoms which will continue to persist despite targeted medical interventions such as Florinef and compression stockings, used to raise her marginal decreases in blood pressure from supine to standing. 3. Possible atypical migraine. The patient's neurologic symptoms may be secondary to complex migraine etiology, or they could just as likely be secondary to somatization and there is no objective method discerning the difference. I educated the patient that we are attempting to manage her symptoms with a neuropathic agent, namely the introduction of gabapentin, and she is amenable to this intervention at this time. She will follow up with the Neurology Clinic for further guidance. No further neuro imaging is indicated as her MRI is completely normal and her neurologic exam does not yield any focal deficits. It seems exceptionally unlikely that she is experiencing any unidentified venous thrombus causing her symptoms, given that the recurrent nature and suspended duration would result in overt findings on her MRI. Consequently, an MRV is not indicated. In summary, the patient is most likely experiencing her 1st hospitalization from somatization and this is highly disturbing to the patient. She demonstrates understanding of the concept, but does not express much confidence in this diagnosis. She seems more concerned in continuing workup for some underlying, unidentified structural etiology. I have advised her that she can continue to see specialists for the treatment of symptoms related to the numerous systems she seems to have affected, but perhaps her highest yield intervention would be focusing on mental health and symptom management with either a functional medicine primary care specialists or a psychiatrist/ therapist who fully understands functional medicine and somatization. She seems reticent follow this guidance. DISCHARGE MEDICATIONS: Please see official discharge medication reconciliation sheet in chart , gabapentin 300 mg at bedtime, Florinef 0.1 mg twice daily. DISCHARGE INSTRUCTIONS: If possible, please establish care with Dr. La Lua, for follow up with primary care provider to receive recommendation for a functional medicine specialist/psychiatrist/therapist. TIME SPENT: Greater than 75 minutes were spent on direct patient care, as well as discharge planning and preparation.
[2017-01-16 08:42] LABS: ANTI EBNA Positive (Negative); ANTI VCA/IgG Positive (Negative); ANTI VCA/IgM Negative (Negative)
[2017-01-16 13:14] LABS: INTERPRETATION 0 bands (<4); OLIGOCLONAL BANDING CSF 0 bands; OLIGOCLONAL BANDING SERUM 0 bands
== END 2017-01-13 15:23 | disposition home or self-care (01) | DRG 310 ==
LOC: EDUNIT# → INTOOBSV 21:16 → F3N 22:10 → OBSVTOIN 01-11 17:56
PROVIDERS: ADMIT Student in an Organized Health Care Education/Training Program; ATTEND Student in an Organized Health Care Education/Training Program
PROC: 009U3ZX Drainage of Spinal Canal, Percutaneous Approach, Diagnostic (ICD-10-PCS; principal; 2017-01-11)
DX: I49.8 Other specified cardiac arrhythmias (principal); G43.909 Migraine, unspecified, not intractable, without status migrainosus; F45.9 Somatoform disorder, unspecified; R53.82 Chronic fatigue, unspecified; E78.00 Pure hypercholesterolemia, unspecified
CPT/HCPCS: 83916-90; 86141-90; 86644-90; 86645-90; 86664-90; 86665-90; 92523-GN; 92610-GN; A9585; G0378; J0834

== ENCOUNTER 2017-01-22 23:01 | Emergency (ER) | payer MEDICAID ==
[2017-01-22 23:08] VITALS: PULSE 81; TEMP 97.9; O2SAT 100
--- NOTE | 2017-01-22 23:39 | EDPHY ---
H & P Stated Complaint: sob, weakness, "feeling like something is moving in her abdomen" Time Seen by Provider: 01/22/17 23:09 HPI/ROS: Chief Complaint: Difficulty breathing, lightheaded HPI: 36-year-old woman recently admitted to this hospital with multiple complaints including headache, intermittent weakness, shortness of breath and lightheadedness. Patient also had a sensation of "feeling something moving through my body ". Patient had an extensive workup including blood work, MRIs, lumbar punctures. She is currently on a Holter monitor. Results of her investigations have been normal with the exception of some findings of some orthostatic hypotension. It was the feeling of both the hospitalist and the Neurology consultants that symptoms were likely secondary to a somatization disorder. Patient was seen by her primary care physician last Monday. She is scheduled to follow up with Neurology and Cardiology. Patient states tonight she was lying in bed started feeling more short of breath. She also had the sensation of something moving to her body some left arm pain and some general malaise. She called a friend to bring her to the hospital for further evaluation. ROS: 10 point Review of Systems is negative except as noted in the HPI. PMH: Chronic fatigue Social History: No smoking, no alcohol, no recreational drug use Family History: non-contributory Physical Exam: Gen: Awake, Alert, No Distress HEENT: Nose: no rhinorrhea Eyes: PERRLA, EOMI Mouth: Moist mucosa Neck: Supple, no JVD Chest: nontender, lungs clear to auscultation Heart: S1, S2 normal, no murmur Abd: Soft, non-tender, no guarding Back: no CVA tenderness, no midline tenderness Ext: no edema, non-tender Skin: no rash Neuro: CN II-XII intact, Sensation grossly intact, Strength 5/5 in bilateral upper and lower extremities - Personal History LMP (Females 10-55): 1-7 Days Ago - Medical/Surgical History Hx Asthma: No Hx Chronic Respiratory Disease: No Hx Diabetes: No Hx Cardiac Disease: No Hx Renal Disease: No Hx Cirrhosis: No Hx Alcoholism: No Hx HIV/AIDS: No Hx Splenectomy or Spleen Trauma: No Other PMH: tremors, chronic fatigue, anemia. - Social History Smoking Status: Never smoked Constitutional: Initial Vital Signs Temperature (C) 36.6 C 01/22/17 23:04 Heart Rate 81 01/22/17 23:04 Respiratory Rate 18 01/22/17 23:04 Blood Pressure 120/97 H 01/22/17 23:04 O2 Sat (%) 100 01/22/17 23:04 O2 Delivery Mode Room Air Allergies/Adverse Reactions: amoxicillin Allergy (Intermediate, Verified 01/22/17 23:08) Rash tetracycline Allergy (Intermediate, Verified 01/22/17 23:08) Other-Enter Comments avocado Allergy (Verified 01/22/17 23:08) Milk Containing Products [dairy] Allergy (Verified 01/22/17 23:08) animals Allergy (Uncoded 01/22/17 23:08) Home Medications: Medication Instructions Recorded Cyanocobalamin [Vitamin B12 1,000 mcg IM Q7D 01/10/17 1000MCG/ML (*)] Herbals/Supplements -Info Only 1 ea PO DAILY 01/10/17 Ibuprofen [Motrin (*)] 400 mg PO Q4-6PRN PRN 01/10/17 Fludrocortisone Acetate [Florinef] 0.1 mg PO BID #60 tab 01/13/17 Gabapentin [Neurontin 300 MG (*)] 300 mg PO DAILY21 #30 cap 01/13/17 Medical Decision Making ED Course/Re-evaluation: 36-year-old with multiple medical complaints noted which fit a particular organ system or a disorder. She had an episode of shortness of breath. She denies being anxious. She also however she does appear very anxious at this time. She has a sinus rhythm on her monitor with a rate of 75. She is satting 100% on room air. She is in no distress. I have had a long conversation with her given her recent admission with completely negative workups I do not feel that repeating any studies tonight would be particularly useful. I have reassured her that there is no evidence of an acute medical emergency at this time. She would most benefit from follow-up with Neurology and her primary care physician. She will continue wearing the Holter monitor but there are no symptoms now to suggest acute cardiac event. I do not feel that the monitor needs to be downloaded or interrogated at this time. She is otherwise well- appearing. She will be discharged with follow-up as indicated. Departure - Departure Disposition: Home, Routine, Self-Care Clinical Impression: Dyspnea Condition: Good Instructions: Dyspnea (ED) Additional Instructions: Please make sure to follow up with your neurologist, loan servicing officer, and primary care physician in the next 3-4 days for further evaluation. Your vital signs and physical examination are completely normal today. There are no findings to suggest any acute emergent medical process. Return to the emergency department for worsening pain, fainting, nausea, vomiting, or any other concerns. Referrals: China Moya PA [Primary Care Provider] - As per Instructions
[2017-01-23 00:13] VITALS: BP 112/77; RESP 16
== END 2017-01-23 00:12 | disposition home or self-care (01) ==
DX: R06.00 Dyspnea, unspecified (principal)

== ENCOUNTER 2017-04-06 17:25 | Emergency (ER) | payer MEDICAID ==
[2017-04-06 17:38] VITALS: BP 112/81; PULSE 74; RESP 18; TEMP 97.7; O2SAT 98
--- NOTE | 2017-04-06 18:10 | EDPHY ---
H & P Stated Complaint: chronic neurological issues since dec/seen [facility] 03/22/ increasing l sided Time Seen by Provider: 04/06/17 17:42 HPI/ROS: CHIEF COMPLAINT: Paresthesias and weakness HISTORY OF PRESENT ILLNESS: The patient is a 37-year-old female who comes to the emergency department complaining of left-sided paresthesias and weakness including her face, throat, arm and leg. She has had the symptoms constantly since she was admitted here in December although reviewing the medical record reveals multiple previous visits for similar symptoms. At that time she was diagnosed with somatization and functional disorder. She did not have any objective deficits on exam. She had a negative MRI of her neck and head. She had a negative lumbar puncture. She was seen by Neurology as well as Cardiology and no abnormalities found. She was ruled out for adrenal insufficiency. She was ruled out for rheumatologic disorder. She was evaluated for possible B12 deficiency but her hemoglobin was normal. She had some postural orthostatic tachycardia and was started on Florinef although this did not improve her symptoms. She followed up with neurologist Dr. Meraz but tells me that she fired him and has a new referral for Dr. Wen on April 17. She has been seeing Dr. Harvey for B12 injections. She wore a Holter monitor for several weeks that did not find any abnormalities. She also complains of almost constant shortness of breath as well as palpitations. She also complains today of pressure in her face bilaterally. She tells me that her weakness is throughout her whole body but got especially worse this morning when she got up to go to work. She also has persistent neuropathy in her feet, calves, hands and forearms. She was seen at [facility] weeks ago and had a repeat lumbar puncture that was again negative for elevated protein. She has not had a fever. 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 Also numbness in her stomach and a sensation that her skin is "rubbing". She also states that she occasionally has a metallic taste in her mouth. No seizure-like activity. REVIEW OF SYSTEMS: Constitutional: denies: chills, fever, recent illness, recent injury EENTM: denies: blurred vision, double vision, nose congestion Respiratory: See HPI Cardiac: See HPI Gastrointestinal/Abdominal: denies: abdominal pain, diarrhea, nausea, vomiting, blood streaked stools Genitourinary: denies: dysuria, frequency, hematuria, pain Musculoskeletal: See HPI Skin: See HPI Neurological: denies: See HPI Hematologic/Lymphatic: denies: blood clots, easy bleeding, easy bruising Immunologic/allergic: denies: HIV/AIDS, transplant - Physical Exam General Appearance: WD/WN, no distress, thin Eyes, Ears, Nose, Throat Exam: PERRL/EOMI, normal ENT inspection, pharynx normal Neck: non-tender, full range of motion, supple, normal inspection. No: stiff neck, tender lateral Cardiovascular/Chest: normal peripheral pulses, regular rate, rhythm Respiratory: chest non-tender, lungs clear, normal breath sounds. No: crackles , rhonchi Gastrointestinal/Abdominal: normal bowel sounds, non tender, soft Back Exam: normal inspection Extremity: normal range of motion, non-tender, normal inspection Mental Status: alert, oriented x 3, NIH stroke score 0 CN's Exam: normal hearing, normal speech, PERRL, normal eye position, normal gag reflex, normal pupil position, normal speech. No: facial asymmetry, facial droop, facial paresthesias, gaze palsy, tongue deviation to R, tongue deviation to L, no difficulty swallowing or drinking Coordination/Gait: normal finger to nose, normal gait Motor/Sensory: normal. No: motor deficit, sensory deficit, pronator drift (R), pronator drift (L), weak motor strength RUE, weak motor strength LUE, weak motor strength RLE, weak motor strength LLE, she does have mild tremors in all extremities DTR: tricep (R): 2+, tricep (L): 2+, knee (R): 2+, knee (L): 2+ Skin Exam: warm/dry, normal color Lymphatic: no adenopathy Source: Patient Exam Limitations: No limitations - Personal History LMP (Females 10-55): Now Current Tetanus/Diphtheria Vaccine: No - Medical/Surgical History Hx Asthma: No Hx Chronic Respiratory Disease: No Hx Diabetes: No Hx Cardiac Disease: No Hx Renal Disease: No Hx Cirrhosis: No Hx Alcoholism: No Hx HIV/AIDS: No Hx Splenectomy or Spleen Trauma: No Other PMH: tremors, chronic fatigue, anemia.aguilar - Family History Significant Family History: No pertinent family hx - Social History Smoking Status: Never smoked Alcohol Use: Sober Drug Use: None Constitutional: Initial Vital Signs Temperature (C) 36.5 C 04/06/17 17:35 Heart Rate 74 04/06/17 17:35 Respiratory Rate 18 04/06/17 17:35 Blood Pressure 112/81 H 04/06/17 17:35 O2 Sat (%) 98 04/06/17 17:35 O2 Delivery Mode Room Air Allergies/Adverse Reactions: amoxicillin Allergy (Intermediate, Verified 01/22/17 23:08) Rash tetracycline Allergy (Intermediate, Verified 01/22/17 23:08) Other-Enter Comments avocado Allergy (Verified 01/22/17 23:08) Milk Containing Products [dairy] Allergy (Verified 01/22/17 23:08) animals Allergy (Uncoded 01/22/17 23:08) Home Medications: Medication Instructions Recorded Cyanocobalamin [Vitamin B12 1,000 mcg IM Q7D 01/10/17 1000MCG/ML (*)] Herbals/Supplements -Info Only 1 ea PO DAILY 01/10/17 Ibuprofen [Motrin (*)] 400 mg PO Q4-6PRN PRN 01/10/17 Fludrocortisone Acetate [Florinef] 0.1 mg PO BID #60 tab 01/13/17 Medical Decision Making ED Course/Re-evaluation: I do not find any objective deficits after very thorough neurologic and cardiovascular examination. The patient has subjective weakness and paresthesias on her left face, neck, throat, arm and leg. No objective deficits. Normal reflexes bilaterally. Normal ambulation. 5/5 strength bilaterally. At this point we discussed options. I told her we can repeat several the test that have already been done although it is unlikely will on cover anything new or revealing. I do suspect the patient symptoms are primarily consistent with a functional disorder but she understands we cannot rule out MS or a variant of Guillain-Mousie etc. She has a follow-up appoint with Neurology next week. We discussed possibilities of other testing including EEG. The I do not find an emergent condition at this time. The patient is happy with this and is eager to go home. Differential Diagnosis: Partial list of the Differential diagnosis considered include but were not limited to; anxiety, functional disorder, atypical migraines, POTS and although unlikely based on the history and physical exam, I also considered infection, MS, Guillain-Mousie, the seizures, CVA, infection. I discussed these differential diagnoses and the plan with the patient as well as the usual and expected course. The patient understands that the diagnosis is provisional and that in medicine we are not always correct and that further workup is often warranted. Usual and customary warnings were given. All of the patient's questions were answered. The patient was instructed to return to the emergency department should the symptoms at all worsen or return, otherwise to followup with the physician as we discussed. Departure - Departure Disposition: Home, Routine, Self-Care Clinical Impression: Paresthesias, Anxiety about health Condition: Fair Instructions: Paresthesia (ED) Referrals: China Moya PA [Primary Care Provider] - As per Instructions Rodney Harvey MD [Medical Doctor] - As per Instructions Ginger Curry DO [Non Staff and Non MD] - 5-7 days, call for appt.
== END 2017-04-06 19:17 | disposition home or self-care (01) ==
DX: R20.2 Paresthesia of skin (principal); F41.9 Anxiety disorder, unspecified

== ENCOUNTER → 2017-05-03 | Outpatient (CLI) | payer MEDICAID | PROVIDERS: ATTEND Psychiatry & Neurology Neurology | DX: R13.10 Dysphagia, unspecified (principal) | CPT/HCPCS: 92611-GN ==

== ENCOUNTER → 2017-05-12 | Outpatient (CLI) | payer MEDICAID ==
[~2017-05-12] MED LIST: GADOBUTROL 10 ML VIAL IVP ONE
== END ==
LOC: FIMAGING 15:30
PROVIDERS: ATTEND Psychiatry & Neurology Neurology
DX: R25.1 Tremor, unspecified (principal); R20.2 Paresthesia of skin; M62.81 Muscle weakness (generalized); M48.02 Spinal stenosis, cervical region; M47.892 Other spondylosis, cervical region; E27.9 Disorder of adrenal gland, unspecified
CPT/HCPCS: A9585

== ENCOUNTER → 2017-06-23 | Outpatient (CLI) | payer MEDICAID ==
[~2017-06-23] MED LIST changes: +NA BICARBONATE 50 MEQ/50 ML VIAL ONE
== END ==
LOC: FIMAGING 16:08
PROVIDERS: ATTEND Physician Assistant
DX: E27.9 Disorder of adrenal gland, unspecified (principal)
CPT/HCPCS: A9585

== ENCOUNTER → 2018-01-22 | Outpatient (CLI) | payer MEDICAID | LOC: FIMAGING 13:24 | PROVIDERS: ATTEND Physician Assistant | DX: O99.352 Diseases of the nervous system complicating pregnancy, second trimester (principal); O09.512 Supervision of elderly primigravida, second trimester; G24.9 Dystonia, unspecified; R53.82 Chronic fatigue, unspecified; I95.1 Orthostatic hypotension; Z3A.13 13 weeks gestation of pregnancy ==

== ENCOUNTER → 2018-03-13 | Outpatient (CLI) | payer MEDICAID | LOC: FIMAGING 10:46 | PROVIDERS: ATTEND Physician Assistant | DX: O09.512 Supervision of elderly primigravida, second trimester (principal); Z3A.21 21 weeks gestation of pregnancy; I49.8 Other specified cardiac arrhythmias; R53.82 Chronic fatigue, unspecified; G24.8 Other dystonia; G71.12 Myotonia congenita ==

== ENCOUNTER → 2018-05-07 | Outpatient (CLI) | payer MEDICAID | LOC: FIMAGING 12:59 | PROVIDERS: ATTEND Physician Assistant | DX: O09.523 Supervision of elderly multigravida, third trimester (principal); Z3A.29 29 weeks gestation of pregnancy ==

== ENCOUNTER → 2018-06-26 | Outpatient (CLI) | payer MEDICAID | LOC: FIMAGING 10:06 | PROVIDERS: ATTEND Physician Assistant | DX: O09.513 Supervision of elderly primigravida, third trimester (principal); G93.3 Postviral and related fatigue syndromes; Z82.0 Family history of epilepsy and other diseases of the nervous system; Z3A.36 36 weeks gestation of pregnancy ==

== ENCOUNTER 2018-07-26 11:47 | Inpatient (IN) | payer MEDICAID ==
[2018-07-26] MEDS ORDERED: EPSOM SALT 454 GM TP PRN (11:57)
[2018-07-26] MEDS ORDERED: LR 1,000 ML IV PRN (11:57)
[2018-07-26] MEDS ORDERED: IBUPROFEN 600 MG TAB PO PRN (11:57)
[2018-07-26] MEDS ORDERED: MISOPROSTOL 200 MCG TAB PR PRN (11:57)
[2018-07-26] MEDS ORDERED: LIDOCAINE 1% 300 MG/30 ML SDV SC PRN (11:57)
[2018-07-26] MEDS ORDERED: OXYTOCIN/RINGERS LACTATE 1,000 ML IV PRN (11:57)
[2018-07-26] MEDS ORDERED: OLIVE OIL 118 ML BTL MISC PRN (11:57)
[2018-07-26] MEDS ORDERED: MISOPROSTOL 200 MCG TAB ONE ×2 (12:01→18:38)
[2018-07-26] MEDS ORDERED: TERBUTALINE SULFATE 1 MG/ML VIAL ONE ×2 (12:01→18:38)
[2018-07-26] MEDS ORDERED: OLIVE OIL 118 ML BTL MISC ONE ×2 (12:01→18:37)
[2018-07-26] MEDS ORDERED: LIDOCAINE 1% 300 MG/30 ML SDV ONE ×2 (12:01→18:37)
[2018-07-26] MEDS ORDERED: AMMONIA AROMATIC 1 EACH AMP IH ONE ×2 (12:01→18:37)
[2018-07-26] MEDS ORDERED: OXYTOCIN 10 UNIT/ML VIAL ONE ×2 (12:01→18:38)
[2018-07-26 12:12] LABS: PLATELET COUNT 209 10^3/uL (150-400)
[2018-07-26] MEDS ORDERED: fentaNYL 100 MCG/2 ML INJ IVP PRN (12:14)
[2018-07-26] MEDS ORDERED: BUPIVACAINE 0.25% 10 ML SDV ONE (12:38)
[2018-07-26] MEDS ORDERED: PHENYLEPHRINE HCL 100 MCG/ML SYR ONE (12:38)
[2018-07-26] MEDS ORDERED: fentaNYL 2MCG/ML/BUP 0.1% RTU 100 ML BAG EP ONE (12:38)
[2018-07-26] MEDS: ONDANSETRON 4 MG/2 ML VIAL IVP PRN ×2 (13:10→22:10)
[2018-07-26] MEDS ORDERED: NALOXONE HCL 0.4 MG/ML INJ IVP PRN (13:15)
[2018-07-26] MEDS ORDERED: PHENYLEPHRINE HCL 100 MCG/ML SYR IVP PRN (13:15)
--- NOTE | 2018-07-26 13:19 | PREANESOB ---
Obstetric Pre-Anesthesia Info - General Info Proposed Procedure: JESSICA for IUP in labor and : 1 Para: 0 - Info Status: Full Term Monitors: External FHR Pattern: Reassuring - Labor Status Cervical Dilation per last OB SVE: 3 Indications for Labor Analgesia: Pain Control Labor Epidural: Proposed Anesthesia ROS: POTS ? neurlogic symptoms ? Chiari malformation-not likely per neurologist previous LP x2 with PDPH and no other problems Allergies/Adverse Reactions: Allergy/AdvReac Type Severity Reaction Status Date / Time amoxicillin Allergy Intermediate Rash Verified 01/22/17 23:08 tetracycline Allergy Intermediate Other-Enter Verified 01/22/17 23:08 Comments avocado Allergy Verified 01/22/17 23:08 Milk Containing Products Allergy Verified 01/22/17 23:08 [dairy] animals Allergy Uncoded 01/22/17 23:08 Home Medications: Medication Instructions Recorded Cyanocobalamin [Vitamin B12 1,000 mcg IM Q7D 01/10/17 1000MCG/ML (*)] Herbals/Supplements -Info Only 1 ea PO DAILY 01/10/17 Ibuprofen [Motrin (*)] 400 mg PO Q4-6PRN PRN 01/10/17 Fludrocortisone Acetate [Florinef] 0.1 mg PO BID #60 tab 01/13/17 Visit Medications: Generic Name Dose Route Start Last Admin Trade Name Freq PRN Reason Stop Dose Admin Diphenhydramine HCl 25 - 50 mg 07/26/18 13:15 Benadryl Injection IVP 01/22/19 13:14 Q6HRS PRN Itching Fentanyl 50 mcg 07/26/18 12:14 07/26/18 12:37 Sublimaze IVP 08/05/18 12:13 50 mcg Q2HRS PRN Administration Pain, Severe Unable to Take PO Lactated Ringer's 1,000 mls @ 0 mls/hr 07/26/18 11:57 Lr IV 07/27/18 11:56 PRN PRN SEE PROTOCOL CONDITIONS Protocol Per Protocol Oxytocin/Lactated Ringer's 1,000 mls @ 125 mls/hr 07/26/18 11:57 Pitocin 20 Units/Lr (Premix) IV PRN PRN Post bleeding Fentanyl/Bupivacaine HCl 100 mls @ 0 mls/hr 07/26/18 13:30 Fentanyl/Bupivacaine/Ns 2 Mcg/Ml 0.1% (Premix EP 08/05/18 13:29 CONT MALLORY Protocol As Directed Lactated Ringer's 500 mls @ 0 mls/hr 07/26/18 13:30 Lr IV 01/22/19 13:29 CONT MALLORY As Directed Ibuprofen 600 mg 07/26/18 11:57 Motrin PO ONCE PRN post , pain Lidocaine HCl 300 mg 07/26/18 11:57 Lidocaine Hcl 1% SC 01/22/19 11:56 ONCE PRN episiotomy Magnesium Sulfate 454 gm 07/26/18 11:57 Epsom Salt TP 01/22/19 11:56 Q1H PRN perineal discomfort Misoprostol 800 - 1,000 mcg 07/26/18 11:57 Cytotec NJ ONCE PRN Vaginal Atony/Bleeding Naloxone HCl 0.4 mg 07/26/18 13:15 Narcan IVP 01/22/19 13:14 PRN PRN Respiratory depression [place] Oil 118 ml 07/26/18 11:57 Sweet Oil MISC 01/22/19 11:56 ONCE PRN perineal massage Ondansetron HCl 4 mg 07/26/18 12:13 07/26/18 13:10 Zofran IVP 01/22/19 12:12 4 mg Q4HRS PRN Administration Nausea/Vomiting, Can't Take PO Phenylephrine HCl 100 mcg 07/26/18 13:15 Neosynephrine IVP 01/22/19 13:14 .Q2M PRN Hypotension Discontinued Medications Generic Name Dose Route Start Last Admin Trade Name Freq PRN Reason Stop Dose Admin Ammonia (Aromatic Spirit) Confirm 07/26/18 12:01 Ammonia Aromatic Administered 07/26/18 12:02 Dose 1 each IH .STK-MED ONE Bupivacaine HCl Confirm 07/26/18 12:38 Sensorcaine 0.25% Sdv Administered 07/26/18 12:39 Dose 20 ml .ROUTE .STK-MED ONE Fentanyl/Bupivacaine HCl Confirm 07/26/18 12:38 Fentanyl/Bupivacaine/Ns 2 Mcg/Ml 0.1% (Premix Administered 07/26/18 12:39 Dose 100 ml EP .STK-MED ONE Lidocaine HCl Confirm 07/26/18 12:01 Lidocaine Hcl 1% Administered 07/26/18 12:02 Dose 300 mg .ROUTE .STK-MED ONE Misoprostol Confirm 07/26/18 12:01 Cytotec Administered 07/26/18 12:02 Dose 1,000 mcg .ROUTE .STK-MED ONE [place] Oil Confirm 07/26/18 12:01 Sweet Oil Administered 07/26/18 12:02 Dose 118 ml MISC .STK-MED ONE Oxytocin Confirm 07/26/18 12:01 Pitocin Administered 07/26/18 12:02 Dose 40 unit .ROUTE .STK-MED ONE Phenylephrine HCl Confirm 07/26/18 12:38 Neosynephrine Administered 07/26/18 12:39 Dose 1,000 mcg .ROUTE .STK-MED ONE Terbutaline Sulfate Confirm 07/26/18 12:01 Brethine Administered 07/26/18 12:02 Dose 1 mg .ROUTE .STK-MED ONE - Social History Substance Use/Abuse: Denies - Vital Signs Blood Pressure: 112/61 - Focused Exam Neck exam: FROM Mallampati Score: Class 2 Mouth exam: normal dental/mouth exam Pulmonary: no respiratory distress Cardiovascular: regular rate and rhythym Labs: 07/26/18 12:00 Patient ABO/Rh A NEGATIVE 07/26/18 12:00 - Plan Consent Signed and on Chart: Yes Patient/Guardian Understands and Agrees to Plan: Yes Urgent/Emergent Case: Sean guevara completed preop but documented later for safe timely pt care
[2018-07-26] MEDS ORDERED: fentaNYL 2MCG/ML/BUP 0.1% RTU 100 ML EP SCH (13:30)
[2018-07-26] MEDS ORDERED: LR 500 ML IV SCH (13:30)
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
[2018-07-26] MEDS ORDERED: LR 500 ML IV PRN (22:25)
[2018-07-26] MEDS ORDERED: OXYTOCIN/RINGERS LACTATE 500 ML IV SCH (22:30)
[2018-07-27] MEDS: CALCIUM CARBONATE 500 MG CHEWABLE TAB PO PRN ×2 (00:14→02:52)
[2018-07-27] MEDS ORDERED: CALCIUM CARBONATE 500 MG CHEWABLE TAB PO ONE (02:45)
[2018-07-27] MEDS ORDERED: HEMABATE 250 MCG/1 ML AMP IM ONE (03:14)
[2018-07-27] MEDS ORDERED: METHYLERGONOVINE MAL 0.2 MG/ML INJ ONE (03:14)
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
--- NOTE | 2018-07-27 05:24 | OBDEL ---
Info Type: Vaginal Presentation at Delivery: Vertex (direct OP position) L&D Analgesia/Anesthesia Type: Epidural, IV Narcotics, Nitrous GBS+: No Intrapartum Medications: Generic Name Dose Route Start Last Admin Trade Name Freq PRN Reason Stop Dose Admin Fentanyl 50 mcg 07/26/18 12:14 07/26/18 12:37 Sublimaze IVP 08/05/18 12:13 50 mcg Q2HRS PRN Administration Pain, Severe Unable to Take PO Lactated Ringer's 1,000 mls @ 0 mls/hr 07/26/18 11:57 07/27/18 01:46 Lr IV 07/27/18 11:56 1,000 mls PRN PRN Administration SEE PROTOCOL CONDITIONS Protocol Per Protocol Fentanyl/Bupivacaine HCl 100 mls @ 0 mls/hr 07/26/18 13:30 07/26/18 22:15 Fentanyl/Bupivacaine/Ns 2 Mcg/Ml 0.1% (Premix EP 08/05/18 13:29 100 mls CONT MALLORY Administration Protocol As Directed Oxytocin/Lactated Ringer's 500 mls @ 0 mls/hr 07/26/18 22:30 07/26/18 22:42 Pitocin 30 Units/Lr (Premix) IV 01/22/19 22:29 500 mls CONT MALLORY Administration Protocol Per Protocol Ondansetron HCl 4 mg 07/26/18 12:13 07/26/18 22:10 Zofran IVP 01/22/19 12:12 4 mg Q4HRS PRN Administration Nausea/Vomiting, Can't Take PO Discontinued Medications Generic Name Dose Route Start Last Admin Trade Name Freq PRN Reason Stop Dose Admin Calcium Carbonate 1,000 mg 07/27/18 00:04 07/27/18 02:52 Tums PO 07/27/18 02:00 1,000 mg ONCE PRN Administration INDIGESTION - Infant Care Provider Loading Shovel Oiler/OCCUPATIONAL PSYCHOLOGIST: Megan Quiñones - Hospital Course Intrapartum: 07/26/18 18:00 pt so excited to hear that she's complete. pushed JESSICA button couple times and feeling some relief. 07/26/18 21:24 LATE NOTE - PT SEEN AT 19:30 BUT THEN CALLED TO ANOTHER DELIVERY. not much result from laboring down. pt having more pain and tried couple times to push - not much effect. by report from RN, ctxns spread out to 6 min and she stopped her from pushing. pt having pain but declined pushing JESSICA button. advised to have pitocin to optimize ctxn strength. pt declines currently and wants to change position. advised that prolonged time at complete can fatigue RAYMOND and increase bleeding risk. 07/26/18 22:22 Pt feeling a bit better with pushing button. pushing with fair effort - head at +1 station - no caput 07/27/18 05:17 -LATE NOTE - PT SEEN AT 02:30 Pt has been resting. disc that ctxns are not in good freq - q 4-6 min on 14 mu/ min pit. can push but likely less results with long interval. Offered VAVD but pt wants to push. does get head down to +2 station. at 3:30 pt agrees to get Vacuum asst. Disc increased risk to baby of hemorrhage/bruising under scalp. Indications for Delivery: SROM Vaginal Delivery - Delivery Provider Delivery Physician/CNM: Karime Kang - Labor and Delivery Onset of Contractions Date: 07/26/18 Onset of Contractions Time: 07:00 Onset of Contractions Type: Spontaneous Rupture of Membranes Date: 07/26/18 Rupture of Membranes Time: 04:00 Rupture of Membranes Type: Spontaneous Amniotic Fluid Color: Clear Dilation Complete Date: 07/26/18 Dilation Complete Time: 16:30 Placenta Delivery Date: 07/27/18 Placenta Delivery Time: 04:08 Total Hours of Labor: 21 Laceration: 2nd Degree (MLL with left labia sheered off and only narrow attachment - extra flap transected off) Repair: 3-0, Vicryl Vaginal Sponge Count Correct: Yes Vaginal Needle Count Correct: Yes Vaginal Sweep Performed: Yes EBL: 400 Delivery Events: Nuchal Cord (x2 loose and reduced), Other (Specify) (Direct OP , VAVD with 5 pulls, no popoffs) Cord Gases: Cord Gases Cord Blood PCO2 43.7 mmHg (37-60) 07/27/18 04:17 Cord Base Excess -4.6 mEq/L (-13.6--3.2) 07/27/18 04:17 Cord ABG pH 7.31 (7.10-7.37) 07/27/18 04:17 Cord VBG pH 7.31 (7.20-7.42) 07/27/18 04:17 - Medications Labor Augmentation/Induction Methods Used: Pitocin Labor Augmentation/Induction Indication: Inadequate Contraction Frequency, Inadequate Contraction Strength Operative Report - Delivery Cord Gases: Cord Gases Cord Blood PCO2 43.7 mmHg (37-60) 07/27/18 04:17 Cord Base Excess -4.6 mEq/L (-13.6--3.2) 07/27/18 04:17 Cord ABG pH 7.31 (7.10-7.37) 07/27/18 04:17 Cord VBG pH 7.31 (7.20-7.42) 07/27/18 04:17 Assissted Delivery Assisted Delivery Type: Vacuum Station: +2 Pop offs (Total): 0 Pulls (Total): 5 Assisted Delivery Comment: VAVD rec due to prolonged second stage. [place] Data SPENCER: 07/27/18 Gestational Age: 40 week(s) and 0 day(s) Schaffer Delivery Date: 07/27/18 Delivery Time: 03:59 Sex of : Male Score (1 Min): 8 Score (5 Min): 9 ICD10 Worksheet Patient Problems: Problems Problem Status Onset Status post vacuum-assisted vaginal delivery Acute Paresthesia Acute
[2018-07-27] MEDS: FAMOTIDINE 20 MG TAB PO SCH ×2 (07:05→19:59)
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
[2018-07-27] MEDS: IBUPROFEN 600 MG TAB PO PRN ×2 (17:17→23:47)
[2018-07-27] MEDS: ACETAMINOPHEN 325 MG TAB PO PRN ×2 (18:02→23:47)
[2018-07-27] MEDS: DOCUSATE SODIUM 100 MG CAP PO PRN (19:59)
[2018-07-28] MEDS: ACETAMINOPHEN 325 MG TAB PO PRN ×3 (05:54→18:09)
[2018-07-28] MEDS: IBUPROFEN 600 MG TAB PO PRN ×3 (05:55→18:09)
--- NOTE | 2018-07-28 08:24 | POSTANESTH ---
Post Anesthetic Evaluation Cardiovascular Status: Similar to Pre-Op Cond Respiratory Status: Normal, Stable Level of Consciousness/Mental Status: Can Participate in Eval Pain Control: Adequate, Prn Tx Ordered Nausea/Vomiting Control: Adequate, Prn Tx Ordered Complications Possibly Related to Anesthesia: None Noted Notes: Pt. reports having had good analgesia from JESSICA. No complaints elicited on detailed questioning, ambulating and urinating without difficulty, minimal back pain.
[2018-07-28] MEDS: DOCUSATE SODIUM 100 MG CAP PO PRN ×2 (08:30→21:16)
[2018-07-28] MEDS: FAMOTIDINE 20 MG TAB PO SCH ×2 (08:30→21:16)
--- NOTE | 2018-07-28 11:43 | OBPP ---
Progress Note Assessment/Plan: Assessment: ppd# 1 s/p uncomplicated post course breast feeding Rh - / baby RH + - rhogam ordered hx dystonia - no current issues significant social issues - has good support now Plan: 07/28/18 11:39 07/28/18 11:40 Subjective/ Course: Scarlett sleeping this AM, I woke her briefly. Reports that she's feeling weak, but generally OK. BF going OK. Per nursing she's needing quite a bit of help with Baby and BF. Pain well controlled. She's hesitant about RhoGam due to prior reactions. 07/28/18 11:40 patient is doing well. pain is well controlled. she is tired but doing well normal lochia. denies headache and changes in vision. working on breast feeding. long discussion about rhogam. had 24 hours or nausea and vomiting after shot at 28 weeks. baby on bili lights. discussed that rhogam is still indicated. multiple questions answered. patient agreeable to rhogam. working on breast feeding. ambulating. Objective: 07/26/18 12:00 Patient ABO/Rh A NEGATIVE 07/27/18 06:20 Temp Pulse Resp BP Pulse Ox 36.5 C 64 16 97/71 L 94 07/28/18 08:15 07/28/18 08:15 07/28/18 08:15 07/28/18 08:15 07/27/18 20:00 Uterine Position/Fundal Height: Umbilicus -2 Physical Exam - Physical Exam Neck: non-tender, full range of motion, supple Respiratory: chest non-tender, lungs clear, normal breath sounds Cardiac/Chest: normal peripheral pulses, regular rate, rhythm Abdomen: normal bowel sounds, non-tender, other (fundus firm and non tender) Extremities: normal range of motion, non-tender, normal inspection, normal capillary refill Skin: normal color, warm/dry Neuro/Psych: no motor/sensory deficits, alert, normal mood/affect, oriented x 3
[2018-07-29] MEDS: ACETAMINOPHEN 325 MG TAB PO PRN ×4 (00:14→22:16)
[2018-07-29] MEDS: IBUPROFEN 600 MG TAB PO PRN ×4 (00:15→22:17)
[2018-07-29] MEDS: DOCUSATE SODIUM 100 MG CAP PO PRN ×2 (09:19→22:20)
[2018-07-29] MEDS: FAMOTIDINE 20 MG TAB PO SCH ×2 (09:20→22:18)
--- NOTE | 2018-07-29 17:31 | ASMTCMCOM ---
CM Note CM Note Notes: CM received request from TEQUILA Arellano, patient needs PT Home Care. CM met with patient, she has worked with outpatient OT with [facility], she is open to [facility]. CM called Adia with [facility] to place referral. Patient phone number and address are correct in chart. Patient shares she is interested in connecting to in home services as she is experiencing L sided weakness. Her sister Usha was present in the room. She recently moved in with family, which is helpful but is temporary. Patient shares concern about ability to care for herself and her son. Patient shares PCP is [facility], she is also connected to [facility] and is pending a housing voucher, she is also connected to [facility], and [facility], shared info about [facility]. CM shared info about [facility] ([facility]), [facility], and [facility]. CM available to follow if any additional CM needs arise. Date Signed: 07/29/2018 05:30 PM Electronically Signed By:Erin Flower
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
[2018-07-30] MEDS: IBUPROFEN 600 MG TAB PO PRN ×3 (04:57→18:26)
[2018-07-30] MEDS: ACETAMINOPHEN 325 MG TAB PO PRN ×3 (05:00→18:27)
[2018-07-30] MEDS: FAMOTIDINE 20 MG TAB PO SCH (09:34)
[2018-07-30 09:41] VITALS: BP 118/71
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
--- NOTE | 2018-07-30 11:30 | OBGCSDC ---
General Delivery Information - General Info : 1 Para: 1 Abortions: 0 Type: Vaginal L&D Analgesia/Anesthesia Type: Epidural, IV Narcotics, Nitrous Admission Date: 07/26/18 Labs: Patient ABO/Rh A NEGATIVE 07/27/18 06:20 Hct 40.1 % (38.0-47.0) 07/26/18 12:00 - Hospital Course Antepartum: 07/26/18 18:02 late transfer of care to [facility] at 35 wks from [facility]. MFM u/s on 06/26 showed EFW at 71st % Intrapartum: 07/26/18 18:00 pt so excited to hear that she's complete. pushed JESSICA button couple times and feeling some relief. 07/26/18 21:24 LATE NOTE - PT SEEN AT 19:30 BUT THEN CALLED TO ANOTHER DELIVERY. not much result from laboring down. pt having more pain and tried couple times to push - not much effect. by report from RN, ctxns spread out to 6 min and she stopped her from pushing. pt having pain but declined pushing JESSICA button. advised to have pitocin to optimize ctxn strength. pt declines currently and wants to change position. advised that prolonged time at complete can fatigue RAYMOND and increase bleeding risk. 07/26/18 22:22 Pt feeling a bit better with pushing button. pushing with fair effort - head at +1 station - no caput 07/27/18 05:17 -LATE NOTE - PT SEEN AT 02:30 Pt has been resting. disc that ctxns are not in good freq - q 4-6 min on 14 mu/ min pit. can push but likely less results with long interval. Offered VAVD but pt wants to push. does get head down to +2 station. at 3:30 pt agrees to get Vacuum asst. Disc increased risk to baby of hemorrhage/bruising under scalp. : Scarlett sleeping this AM, I woke her briefly. Reports that she's feeling weak, but generally OK. BF going OK. Per nursing she's needing quite a bit of help with Baby and BF. Pain well controlled. She's hesitant about RhoGam due to prior reactions. 07/28/18 11:40 patient is doing well. pain is well controlled. she is tired but doing well normal lochia. denies headache and changes in vision. working on breast feeding. long discussion about rhogam. had 24 hours or nausea and vomiting after shot at 28 weeks. baby on bili lights. discussed that rhogam is still indicated. multiple questions answered. patient agreeable to rhogam. working on breast feeding. ambulating. 07/29/18 18:11 Saw Laurie a couple times today, she is really struggling with her hemidystonia and weakness in the context of so little sleep. She has trouble ambulating and holding the baby on that side. following. She is struggling with WARD' s and muscle tightness in her neck. Baby needs to stay until tomorrow for elevated bilirubin. She is concerned about getting RhoGam bc of nausea and vomiting that she had at 28 wks. 07/30/18 11:09 Pt seen and examined. She is working with to get baby latched. She is congested-not feeling well and sleep-deprived. She thinks her milk came in, since breasts are tender. Mild cramping noted, relieved with Motrin. Mod lochia. No issues after receiving RhoGam. She is lianet reg diet, voiding without difficulty and passing flatus. No BM yet. Ready to go home today. Has support with mom and sisters. Vaginal - Delivery Provider Delivery Physician/CNM: Karime Kang - Diagnosis Labor: Spontaneous Rupture of Membranes Type: Spontaneous Amniotic Fluid Color: Clear Laceration: 2nd Degree (MLL with left labia sheered off and only narrow attachment - extra flap transected off) Repair: 3-0, Vicryl Delivery Events: Nuchal Cord (x2 loose and reduced), Other (Specify) (Direct OP , VAVD with 5 pulls, no popoffs) - Procedures Assisted Delivery Type: Vacuum - Delivery EBL: 400 Data SPENCER: 07/27/18 Gestational Age: 40 week(s) and 3 day(s) Schaffer Delivery Date: 07/27/18 Delivery Time: 03:59 Sex of Infant: Male [place] Weight (gm): 3674 g Score (1 Min): 8 Score (5 Min): 9 Discharge Information - Discharge Information Condition: Good Instruction/Follow Up: See Instruction Sheet
[2018-07-30] MEDS: DOCUSATE SODIUM 100 MG CAP PO PRN (12:10)
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
== END 2018-07-30 19:45 | disposition home or self-care (01) | DRG 560 ==
LOC: FLD 11:47 → OBSVTOIN 11:59 → FOB 07-27 08:49
PROVIDERS: ADMIT Obstetrics & Gynecology; ATTEND Obstetrics & Gynecology
DX: O70.1 Second degree perineal laceration during delivery (principal); O63.1 Prolonged second stage (of labor); O69.81X0 Labor and delivery complicated by cord around neck, without compression, not applicable or unspecified; O99.353 Diseases of the nervous system complicating pregnancy, third trimester; G70.9 Myoneural disorder, unspecified; O26.893 Other specified pregnancy related conditions, third trimester; Z67.91 Unspecified blood type, Rh negative; Z91.410 Personal history of adult physical and sexual abuse; Z3A.40 40 weeks gestation of pregnancy; Z37.0 Single live birth
CPT/HCPCS: 97116-GP; 97161-GP; 97166-GO; 97530-GO; 97530-GP; 97535-GO; J2210; J2370; J2405; J2590; J3010; J3105